=== PATIENT | male | born 1990 | race Asian ===

== ENCOUNTER 2018-06-07 05:30 | Inpatient (IN) | payer OTHER, MEDICAID, SELFPAY ==
[2018-06-07] VITALS (16 sets, daily range): BP systolic 97–141; BP diastolic 54–90; PULSE 98–120; RESP 16–20; TEMP 36.1–37.3; O2SAT 94–99; BMI 29.1
--- NOTE | 2018-06-07 06:11 | DI.CT.S_ITS ---
PROCEDURE: CT ABDOMEN PELVIS W CON INDICATIONS: large indurated area of left buttock and inside of rectum TECHNIQUE: After the administration of intravenous contrast, 5 mm thick sections acquired from the diaphragm to the symphysis. 5 mm coronal and sagittal reformats were acquired. For radiation dose reduction, the following was used: automated exposure control, adjustment of mA and/or kV according to patient size. COMPARISON: None. FINDINGS: Image quality: Excellent. ABDOMEN: Lung bases: Lung bases are clear. Heart size is normal. Solid organs: There is diffuse hepatic fatty infiltration. Liver is normal in size and enhancement. Gallbladder is normal. Biliary system is non dilated. Pancreas enhances normally. Spleen is normal in size and enhancement. No adrenal nodules. Kidneys demonstrate normal size and enhancement, without hydronephrosis. Peritoneum and bowel: Bowel loops demonstrate normal wall thickness and caliber. The appendix is normal. No free fluid or air. Nodes and vessels: No retroperitoneal or mesenteric adenopathy by size criteria. Aorta and inferior vena cava are normal in size. Miscellaneous: No ventral hernias. PELVIS: Genitourinary: Bladder wall thickness is normal. Miscellaneous: There is fat stranding in the medial aspect of the left thigh and perineum. A complex, multilocular cystic mass is present in the perianal area measuring 6.2 cm AP x 5.4 cm transverse x 5.3 cephalocaudal, compatible with an abscess. No inguinal adenopathy. There is a small fat-containing left inguinal hernia. Bones: No suspicious bony lesions. No vertebral body compression fractures. IMPRESSION: 1. A complex, multilocular cystic mass is present in the perianal area, suspicious for perianal abscess. A neoplastic process is felt less likely. There is soft tissue stranding in the left medial thigh area and perineum, consistent with cellulitis. 2. Hepatic steatosis. Dictated by: Shayy Purcell M.D. on 06/07/2018 at 8:05 Transcribed by: VALORIE on 06/07/2018 at 8:10 Approved by: Shayy Purcell M.D. on 06/07/2018 at 9:52
--- NOTE | 2018-06-07 06:14 | ED.SKABFB ---
HPI - Skin/Abscess/Foreign Bdy <Charmaine Kelley DO - Last Filed: 06/09/18 09:22> General Chief complaint: Skin/Abscess/Foreign Body Stated complaint: wants boil in anus area checked Time Seen by Provider: 06/07/18 06:01 Source: patient Mode of arrival: ambulatory Limitations: no limitations History of Present Illness HPI narrative: This is a 28-year-old male who comes in with complaint of pain and fullness of the buttock and rectal area for the last 5 days. Patient was seen at a walk-in clinic 2 days ago and was told to watch it. He states he has had similar symptoms once before with Area was much smaller and resolved on its own. He states that the area is tender Um but he can't find an exact point tenderness. He states also tender inside the rectum and around it. Patient states there has not been any drainage. He has pain with bowel movements but immediately after has some relief. He states he has also had some difficulty with urination, he states that he has to try to force urination typically when he is sitting down to have a bowel movement otherwise he can't really make himself P. He is not having any pain with urination or discharge. Patient has not had any documented fevers but has felt warm. Patient has not any chest pain or shortness of breath. No nausea, no vomiting. He did take a laxative to try to give himself diarrhea to help with bowel movements. He denies any other medical history, denies any prior surgeries. Related Data Home Medications Medication Instructions Recorded Confirmed No Known Home Medications 06/07/18 06/07/18 Allergies Allergy/AdvReac Type Severity Reaction Status Date / Time No Known Drug Allergies Allergy Verified 06/07/18 06:28 Review of Systems <Charmaine Kelley DO - Last Filed: 06/09/18 09:22> Review of Systems All systems reviewed & are unremarkable except as noted in HPI and below Constitutional Denies chills and Denies fever(s) Cardiovascular Denies chest pain and Denies dyspnea Respiratory Denies dyspnea Gastrointestinal Gastrointestinal: Reports abdominal pain (pain buttock and rectum), Denies change in bowel habits, Reports tenesmus (but relief after bowel movement), Reports constipation, Denies fecal incontinence, Denies diarrhea, Denies nausea and Denies vomiting Genitourinary Reports difficulty urinating (has to force urination but can go when has bowel movement), Denies genital pain, Denies dysuria, Denies penile discharge, Denies scrotal swelling, Denies testicular pain, Denies urinary frequency and Denies urinary incontinence Musculoskeletal Denies back pain Exam <Charmaine Kelley DO - Last Filed: 06/09/18 09:22> Narrative Exam Narrative: GENERAL: Alert and oriented x three, well nourished, well appearing male in moderate distress. HEENT: Head normocephalic, atraumatic, EOMI, pupils reactive, face symmetric, moist mucous membranes NECK: Supple, full range of motion CARDIOVASCULAR: Regular rate and rhythm without murmurs, rubs or gallops. RESPIRATORY: Breath sounds equal bilaterally, no wheezes rales or rhonchi. ABDOMEN: Soft, nontender. Normoactive bowel sounds all 4 quadrants. No guarding or rebound, rigidity, no mass, patient has fullness and induration of left buttock from 7x5cm, patient has no discernible fluctuence. Patient on digital rectal has induration at the 9 o'clock position internally, no fluctuence appreciated but patient is tender. No erthema noted. : No CVA tenderness EXTREMITIES: Normal range of motion, no clubbing or edema. Neurovascularly intact NEUROLOGICAL: Cranial nerves II through XII grossly intact. Moving all extremities SKIN: Warm, dry, no petechiae, no rashes or lesions. Initial Vital Signs Initial Vital Signs: Vital Signs Temperature 97 F L 06/07/18 05:51 Pulse Rate 120 H 06/07/18 05:51 Respiratory Rate 20 06/07/18 05:51 Blood Pressure 135/80 06/07/18 05:51 Pulse Oximetry 97 06/07/18 05:51 <Maria Luisa Duong DO - Last Filed: 06/07/18 11:45> Initial Vital Signs Initial Vital Signs: Vital Signs Temperature 97 F L 06/07/18 05:51 Pulse Rate 120 H 06/07/18 05:51 Respiratory Rate 20 06/07/18 05:51 Blood Pressure 135/80 06/07/18 05:51 Pulse Oximetry 97 06/07/18 05:51 Course <Charmaine Kelley DO - Last Filed: 06/09/18 09:22> Orders Ordered: ED Orders 06/09/18 08:25 Complete Blood Count AUTO DIFF Urgent Comprehensive Metabolic Panel Urgent Hydrocodone Bitart/Acetaminophen ([place]ore 5/325) 2 tab PO Q6HR PRN PRN Reason: Pain, Severe (7-10) Last Admin: 06/09/18 03:59 Dose: 2 tab Admin: 06/08/18 02:27 Dose: 2 tab Admin: 06/07/18 19:40 Dose: 2 tab Enoxaparin Sodium (Lovenox) 40 mg SUBCUT DAILY [facility] Last Admin: 06/09/18 09:02 Dose: 40 mg Admin: 06/08/18 09:41 Dose: 40 mg Gabapentin (Neurontin) 300 mg PO BID [facility] Last Admin: 06/09/18 09:02 Dose: 300 mg Admin: 06/08/18 21:37 Dose: 300 mg Admin: 06/08/18 09:41 Dose: 300 mg Admin: 06/07/18 20:51 Dose: 300 mg Glyburide (Diabeta) 2.5 mg PO DAILY@0800 [facility] Last Admin: 06/09/18 09:02 Dose: 2.5 mg Admin: 06/08/18 13:49 Dose: 2.5 mg Lactated Ringer's (Lactated Ringers) 1,000 mls @ 125 mls/hr IV CONT [facility] Last Admin: 06/07/18 20:53 Dose: 125 mls/hr Infusion: 06/07/18 20:53 Dose: 125 mls/hr Admin: 06/07/18 17:22 Dose: 125 mls/hr Ampicillin Sodium/Sulbactam (Sodium 3 gm/ Sodium Chloride) 100 mls @ 100 mls/hr IV Q6H [facility] Last Infusion: 06/09/18 07:38 Dose: 0 mls/hr Admin: 06/09/18 06:08 Dose: 100 mls/hr Infusion: 06/09/18 01:00 Dose: 0 mls/hr Admin: 06/08/18 23:47 Dose: 100 mls/hr Infusion: 06/08/18 19:55 Dose: 0 mls/hr Admin: 06/08/18 18:04 Dose: 100 mls/hr Insulin Aspart (Novolog Flexpen) 0 unit SUBCUT ACHS [facility]; Protocol Last Admin: 06/09/18 09:03 Dose: 2 unit Admin: 06/08/18 21:35 Dose: Not Given Admin: 06/08/18 16:51 Dose: 2 unit Admin: 06/08/18 13:53 Dose: 2 unit Ketorolac Tromethamine (Toradol) 30 mg IV Q6HR PRN PRN Reason: Pain, Moderate (4-6) Stop: 06/12/18 16:34 Last Admin: 06/09/18 09:01 Dose: 30 mg Admin: 06/08/18 18:04 Dose: 30 mg Admin: 06/08/18 09:41 Dose: 30 mg Metformin HCl (Glucophage) 500 mg PO 0800,1700 [facility] Last Admin: 06/09/18 09:02 Dose: 500 mg Admin: 06/08/18 16:53 Dose: 500 mg Admin: 06/08/18 13:49 Dose: 500 mg Naloxone HCl (Narcan) 0.2 mg IV Q2MIN PRN PRN Reason: Opiate Reversal Sodium Chloride (Normal Saline 0.9% Flush) 10 ml IV BID [facility] Last Admin: 06/09/18 09:04 Dose: 10 ml Admin: 06/08/18 21:37 Dose: 10 ml Sodium Chloride (Normal Saline 0.9% Flush) 10 ml IV PRN PRN PRN Reason: Flush Discontinued Medications Albuterol (Ventolin) 2.5 mg INH NOW PRN PRN Reason: Coughing, Wheezing, Dyspnea Bupivacaine HCl/Epinephrine Bitart (Sensorcaine 0.5% W/ Epi (Pf)) 30 ml INJ NOW ONE Stop: 06/07/18 15:42 Last Admin: 06/07/18 15:41 Dose: 10 ml Fentanyl (Sublimaze) 25 mcg IV Q5MIN PRN PRN Reason: Pain, Mild (1-3) Hydromorphone HCl (Dilaudid) 0.5 mg IV Q5MIN PRN PRN Reason: Pain, Moderate (4-6) Sodium Chloride (Normal Saline 0.9%) 500 mls @ 1,000 mls/hr IV BOLUS ONE Stop: 06/07/18 06:40 Last Admin: 06/07/18 08:19 Dose: Not Given Ceftriaxone Sodium/Dextrose (Rocephin) 1 gm in 50 mls @ 100 mls/hr IV NOW ONE Stop: 06/07/18 06:57 Last Infusion: 06/07/18 07:22 Dose: 0 mls/hr Admin: 06/07/18 06:34 Dose: 100 mls/hr Metronidazole (Flagyl) 500 mg in 100 mls @ 100 mls/hr IV NOW ONE Stop: 06/07/18 07:27 Last Infusion: 06/07/18 09:47 Dose: 0 mls/hr Admin: 06/07/18 07:28 Dose: 100 mls/hr Sodium Chloride (Normal Saline 0.9%) 1,000 mls @ 1,000 mls/hr IV BOLUS ONE Stop: 06/07/18 07:33 Last Infusion: 06/07/18 09:50 Dose: 0 mls/hr Admin: 06/07/18 06:36 Dose: 1,000 mls/hr Lactated Ringer's (Lactated Ringers) 1,000 mls @ 150 mls/hr IV CONT [facility] Last Admin: 06/07/18 11:52 Dose: 150 mls/hr Lactated Ringer's (Lactated Ringers) 1,000 mls @ 42 mls/hr IV CONT [facility] Last Admin: 06/07/18 14:43 Dose: 42 mls/hr Influenza Virus Vaccine (Flu Vaccine) 0.5 ml IM .ONCE ONE Stop: 06/07/18 11:31 Last Admin: 06/07/18 11:53 Dose: 0.5 ml Insulin Aspart (Novolog) 1 unit SUBCUT [facility]; Protocol Last Admin: 06/08/18 14:26 Dose: Ketorolac Tromethamine (Toradol) 30 mg IV NOW ONE Stop: 06/07/18 06:31 Last Admin: 06/07/18 06:37 Dose: 30 mg Meperidine HCl (Demerol) 25 mg IV Q5MIN PRN PRN Reason: Pain or shivering Metoclopramide HCl (Reglan) 10 mg IV NOW PRN PRN Reason: Nausea And Vomiting Ondansetron HCl (Zofran) 4 mg IV NOW PRN PRN Reason: Nausea And Vomiting Oxycodone/Acetaminophen (Percocet 5/325) 1 tab PO Q30MIN PRN PRN Reason: Mild or moderate pain Vital Signs - 8 hr 06/09/18 02:06 06/09/18 06:21 06/09/18 07:20 Temperature 98.0 F 97.9 F 97.7 F Pulse Rate 73 84 81 Respiratory Rate 16 16 20 Blood Pressure 105/66 112/73 121/82 Pulse Oximetry 95 97 99 <Maria Luisa Duong, DO - Last Filed: 06/07/18 11:45> Orders Ordered: ED Orders 06/09/18 08:25 Complete Blood Count AUTO DIFF Urgent Comprehensive Metabolic Panel Urgent Hydrocodone Bitart/Acetaminophen ([place]ore 5/325) 2 tab PO Q6HR PRN PRN Reason: Pain, Severe (7-10) Last Admin: 06/09/18 03:59 Dose: 2 tab Admin: 06/08/18 02:27 Dose: 2 tab Admin: 06/07/18 19:40 Dose: 2 tab Enoxaparin Sodium (Lovenox) 40 mg SUBCUT DAILY [facility] Last Admin: 06/09/18 09:02 Dose: 40 mg Admin: 06/08/18 09:41 Dose: 40 mg Gabapentin (Neurontin) 300 mg PO BID [facility] Last Admin: 06/09/18 09:02 Dose: 300 mg Admin: 06/08/18 21:37 Dose: 300 mg Admin: 06/08/18 09:41 Dose: 300 mg Admin: 06/07/18 20:51 Dose: 300 mg Glyburide (Diabeta) 2.5 mg PO DAILY@0800 [facility] Last Admin: 06/09/18 09:02 Dose: 2.5 mg Admin: 06/08/18 13:49 Dose: 2.5 mg Lactated Ringer's (Lactated Ringers) 1,000 mls @ 125 mls/hr IV CONT [facility] Last Admin: 06/07/18 20:53 Dose: 125 mls/hr Infusion: 06/07/18 20:53 Dose: 125 mls/hr Admin: 06/07/18 17:22 Dose: 125 mls/hr Ampicillin Sodium/Sulbactam (Sodium 3 gm/ Sodium Chloride) 100 mls @ 100 mls/hr IV Q6H [facility] Last Infusion: 06/09/18 07:38 Dose: 0 mls/hr Admin: 06/09/18 06:08 Dose: 100 mls/hr Infusion: 06/09/18 01:00 Dose: 0 mls/hr Admin: 06/08/18 23:47 Dose: 100 mls/hr Infusion: 06/08/18 19:55 Dose: 0 mls/hr Admin: 06/08/18 18:04 Dose: 100 mls/hr Insulin Aspart (Novolog Flexpen) 0 unit SUBCUT [facility]; Protocol Last Admin: 06/09/18 09:03 Dose: 2 unit Admin: 06/08/18 21:35 Dose: Not Given Admin: 06/08/18 16:51 Dose: 2 unit Admin: 06/08/18 13:53 Dose: 2 unit Ketorolac Tromethamine (Toradol) 30 mg IV Q6HR PRN PRN Reason: Pain, Moderate (4-6) Stop: 06/12/18 16:34 Last Admin: 06/09/18 09:01 Dose: 30 mg Admin: 06/08/18 18:04 Dose: 30 mg Admin: 06/08/18 09:41 Dose: 30 mg Metformin HCl (Glucophage) 500 mg PO 0800,1700 [facility] Last Admin: 06/09/18 09:02 Dose: 500 mg Admin: 06/08/18 16:53 Dose: 500 mg Admin: 06/08/18 13:49 Dose: 500 mg Naloxone HCl (Narcan) 0.2 mg IV Q2MIN PRN PRN Reason: Opiate Reversal Sodium Chloride (Normal Saline 0.9% Flush) 10 ml IV BID [facility] Last Admin: 06/09/18 09:04 Dose: 10 ml Admin: 06/08/18 21:37 Dose: 10 ml Sodium Chloride (Normal Saline 0.9% Flush) 10 ml IV PRN PRN PRN Reason: Flush Discontinued Medications Albuterol (Ventolin) 2.5 mg INH NOW PRN PRN Reason: Coughing, Wheezing, Dyspnea Bupivacaine HCl/Epinephrine Bitart (Sensorcaine 0.5% W/ Epi (Pf)) 30 ml INJ NOW ONE Stop: 06/07/18 15:42 Last Admin: 06/07/18 15:41 Dose: 10 ml Fentanyl (Sublimaze) 25 mcg IV Q5MIN PRN PRN Reason: Pain, Mild (1-3) Hydromorphone HCl (Dilaudid) 0.5 mg IV Q5MIN PRN PRN Reason: Pain, Moderate (4-6) Sodium Chloride (Normal Saline 0.9%) 500 mls @ 1,000 mls/hr IV BOLUS ONE Stop: 06/07/18 06:40 Last Admin: 06/07/18 08:19 Dose: Not Given Ceftriaxone Sodium/Dextrose (Rocephin) 1 gm in 50 mls @ 100 mls/hr IV NOW ONE Stop: 06/07/18 06:57 Last Infusion: 06/07/18 07:22 Dose: 0 mls/hr Admin: 06/07/18 06:34 Dose: 100 mls/hr Metronidazole (Flagyl) 500 mg in 100 mls @ 100 mls/hr IV NOW ONE Stop: 06/07/18 07:27 Last Infusion: 06/07/18 09:47 Dose: 0 mls/hr Admin: 06/07/18 07:28 Dose: 100 mls/hr Sodium Chloride (Normal Saline 0.9%) 1,000 mls @ 1,000 mls/hr IV BOLUS ONE Stop: 06/07/18 07:33 Last Infusion: 06/07/18 09:50 Dose: 0 mls/hr Admin: 06/07/18 06:36 Dose: 1,000 mls/hr Lactated Ringer's (Lactated Ringers) 1,000 mls @ 150 mls/hr IV CONT [facility] Last Admin: 06/07/18 11:52 Dose: 150 mls/hr Lactated Ringer's (Lactated Ringers) 1,000 mls @ 42 mls/hr IV CONT [facility] Last Admin: 06/07/18 14:43 Dose: 42 mls/hr Influenza Virus Vaccine (Flu Vaccine) 0.5 ml IM .ONCE ONE Stop: 06/07/18 11:31 Last Admin: 06/07/18 11:53 Dose: 0.5 ml Insulin Aspart (Novolog) 1 unit SUBCUT [facility]; Protocol Last Admin: 06/08/18 14:26 Dose: Ketorolac Tromethamine (Toradol) 30 mg IV NOW ONE Stop: 06/07/18 06:31 Last Admin: 06/07/18 06:37 Dose: 30 mg Meperidine HCl (Demerol) 25 mg IV Q5MIN PRN PRN Reason: Pain or shivering Metoclopramide HCl (Reglan) 10 mg IV NOW PRN PRN Reason: Nausea And Vomiting Ondansetron HCl (Zofran) 4 mg IV NOW PRN PRN Reason: Nausea And Vomiting Oxycodone/Acetaminophen (Percocet 5/325) 1 tab PO Q30MIN PRN PRN Reason: Mild or moderate pain Vital Signs - 8 hr 06/09/18 02:06 06/09/18 06:21 06/09/18 07:20 Temperature 98.0 F 97.9 F 97.7 F Pulse Rate 73 84 81 Respiratory Rate 16 16 20 Blood Pressure 105/66 112/73 121/82 Pulse Oximetry 95 97 99 MDM - Skin/Abscess/Foreign Bdy <Charmaine Kelley, - Last Filed: 06/09/18 09:22> Lab Data Result diagrams: 06/09/18 08:25 06/09/18 08:25 Lab Results 06/07/18 06/07/18 06/07/18 Range/Units 06:25 06:25 07:07 WBC 17.3 H (4.5-11.0) X10^3/uL RBC 5.29 (4.5-5.9) X10^6/uL Hgb 16.6 (13.5-17.5) g/dL Hct 46.7 (41-53) % MCV 88.2 (80-100) fL MCH 31.3 (26-34) PG MCHC 35.6 (30-36) % RDW 12.7 (11.6-14.8) % Plt Count 208 (150-400) X10^3/uL Neut % (Auto) 80.0 H (50-75) % Lymph % (Auto) 9.5 L (25-40) % [place] % (Auto) 9.5 (3-14) % Eos % (Auto) 0.3 L (2-4) % Baso % (Auto) 0.7 (0-2) % Neut # (Auto) 00363 H (4528-9224) /uL Sodium 137 (137-145) mmol/L Potassium 4.0 (3.4-5.1) mmol/L Chloride 98 (98-107) mmol/L Carbon Dioxide 23 (22-32) mmol/L BUN 9 (9-20) mg/dL Creatinine 0.50 L (0.66-1.25) mg/dL Estimated GFR > 60.0 (>60) mL/min BUN/Creatinine Ratio 18.0 (6-22) Glucose 236 H (70-100) mg/dL Hemoglobin A1c (4.0-6.0) % Lactate 1.7 (0.7-2.1) mmol/L Calcium 9.1 (8.4-10.2) mg/dL Total Bilirubin (0.2-1.3) mg/dL AST (17-59) IU/L ALT (21-72) IU/L Alkaline Phosphatase (38-126) U/L Total Protein (6.3-8.2) g/dL Albumin (3.5-5.0) g/dL Globulin (1.7-4.1) g/dL Albumin/Globulin Ratio (1.0-2.8) 06/08/18 06/08/18 06/08/18 Range/Units 08:40 08:40 08:40 WBC 19.2 H (4.5-11.0) X10^3/uL RBC 5.08 (4.5-5.9) X10^6/uL Hgb 16.0 (13.5-17.5) g/dL Hct 45.1 (41-53) % MCV 88.7 (80-100) fL MCH 31.5 (26-34) PG MCHC 35.4 (30-36) % RDW 12.9 (11.6-14.8) % Plt Count 253 (150-400) X10^3/uL Neut % (Auto) 77.7 H (50-75) % Lymph % (Auto) 13.6 L (25-40) % [place] % (Auto) 8.1 (3-14) % Eos % (Auto) 0.3 L (2-4) % Baso % (Auto) 0.3 (0-2) % Neut # (Auto) 90175 H (6203-3626) /uL Sodium 139 (137-145) mmol/L Potassium 4.0 (3.4-5.1) mmol/L Chloride 100 (98-107) mmol/L Carbon Dioxide 22 (22-32) mmol/L BUN 14 (9-20) mg/dL Creatinine 0.60 L (0.66-1.25) mg/dL Estimated GFR > 60.0 (>60) mL/min BUN/Creatinine Ratio 23.3 H (6-22) Glucose 290 H (70-100) mg/dL Hemoglobin A1c 11.0 H (4.0-6.0) % Lactate (0.7-2.1) mmol/L Calcium 9.6 (8.4-10.2) mg/dL Total Bilirubin (0.2-1.3) mg/dL AST (17-59) IU/L ALT (21-72) IU/L Alkaline Phosphatase (38-126) U/L Total Protein (6.3-8.2) g/dL Albumin (3.5-5.0) g/dL Globulin (1.7-4.1) g/dL Albumin/Globulin Ratio (1.0-2.8) 06/09/18 06/09/18 Range/Units 08:25 08:25 WBC 10.9 (4.5-11.0) X10^3/uL RBC 4.84 (4.5-5.9) X10^6/uL Hgb 15.1 (13.5-17.5) g/dL Hct 42.7 (41-53) % MCV 88.1 (80-100) fL MCH 31.3 (26-34) PG MCHC 35.5 (30-36) % RDW 12.6 (11.6-14.8) % Plt Count 224 (150-400) X10^3/uL Neut % (Auto) 65.3 (50-75) % Lymph % (Auto) 22.0 L (25-40) % [place] % (Auto) 10.7 (3-14) % Eos % (Auto) 1.5 L (2-4) % Baso % (Auto) 0.5 (0-2) % Neut # (Auto) 7100 H (5773-3227) /uL Sodium 138 (137-145) mmol/L Potassium 3.6 (3.4-5.1) mmol/L Chloride 100 (98-107) mmol/L Carbon Dioxide 26 (22-32) mmol/L BUN 11 (9-20) mg/dL Creatinine 0.60 L (0.66-1.25) mg/dL Estimated GFR > 60.0 (>60) mL/min BUN/Creatinine Ratio 18.3 (6-22) Glucose 205 H (70-100) mg/dL Hemoglobin A1c (4.0-6.0) % Lactate (0.7-2.1) mmol/L Calcium 8.9 (8.4-10.2) mg/dL Total Bilirubin 0.5 (0.2-1.3) mg/dL AST 27 (17-59) IU/L ALT 33 (21-72) IU/L Alkaline Phosphatase 77 (38-126) U/L Total Protein 6.7 (6.3-8.2) g/dL Albumin 3.5 (3.5-5.0) g/dL Globulin 3.2 (1.7-4.1) g/dL Albumin/Globulin Ratio 1.1 (1.0-2.8) Point of Care Testing Glucose POC 192 Urine Dip Bedside Urine Glucose 1000 mg/dl Bedside Urine Bilirubin - Negative Bedside Urine Ketone +++ 80 Urine Specific [place] 1.015 Bedside Urine Occult Blood - Negative Bedside Urine pH 6.0 Bedside Urine Protein +/- 15 Bedside Urine Urobilinogen - Negative Bedside Urine Nitrite - Negative Bedside Urine Leukocytes - Negative Esterase MDM Narrative Medical decision making narrative: Unable to palpate a clear fluctuant mass or area of abscess although patient has a large area of induration internally on rectal exam as well as over the left buttock. Concern for a large abscess or a deep perirectal or ischial rectal abscess particularly with his difficulty with urination. Patient's heart rate also quite elevated so ordered lab work for evaluation sepsis, IV fluids and is CT of the abdomen and pelvis. Patient had antibiotics ordered as well. Patient is signed out to Dr. Duong the oncoming physician for final disposition. Lab work and CT are still pending at sign-out. <Maria Luisa Duong, DO - Last Filed: 06/07/18 11:45> Lab Data Lab Results 06/07/18 06/07/18 06/07/18 Range/Units 06:25 06:25 07:07 WBC 17.3 H (4.5-11.0) X10^3/uL RBC 5.29 (4.5-5.9) X10^6/uL Hgb 16.6 (13.5-17.5) g/dL Hct 46.7 (41-53) % MCV 88.2 (80-100) fL MCH 31.3 (26-34) PG MCHC 35.6 (30-36) % RDW 12.7 (11.6-14.8) % Plt Count 208 (150-400) X10^3/uL Neut % (Auto) 80.0 H (50-75) % Lymph % (Auto) 9.5 L (25-40) % [place] % (Auto) 9.5 (3-14) % Eos % (Auto) 0.3 L (2-4) % Baso % (Auto) 0.7 (0-2) % Neut # (Auto) 47387 H (6913-9540) /uL Sodium 137 (137-145) mmol/L Potassium 4.0 (3.4-5.1) mmol/L Chloride 98 (98-107) mmol/L Carbon Dioxide 23 (22-32) mmol/L BUN 9 (9-20) mg/dL Creatinine 0.50 L (0.66-1.25) mg/dL Estimated GFR > 60.0 (>60) mL/min BUN/Creatinine Ratio 18.0 (6-22) Glucose 236 H (70-100) mg/dL Hemoglobin A1c (4.0-6.0) % Lactate 1.7 (0.7-2.1) mmol/L Calcium 9.1 (8.4-10.2) mg/dL Total Bilirubin (0.2-1.3) mg/dL AST (17-59) IU/L ALT (21-72) IU/L Alkaline Phosphatase (38-126) U/L Total Protein (6.3-8.2) g/dL Albumin (3.5-5.0) g/dL Globulin (1.7-4.1) g/dL Albumin/Globulin Ratio (1.0-2.8) 06/08/18 06/08/18 06/08/18 Range/Units 08:40 08:40 08:40 WBC 19.2 H (4.5-11.0) X10^3/uL RBC 5.08 (4.5-5.9) X10^6/uL Hgb 16.0 (13.5-17.5) g/dL Hct 45.1 (41-53) % MCV 88.7 (80-100) fL MCH 31.5 (26-34) PG MCHC 35.4 (30-36) % RDW 12.9 (11.6-14.8) % Plt Count 253 (150-400) X10^3/uL Neut % (Auto) 77.7 H (50-75) % Lymph % (Auto) 13.6 L (25-40) % [place] % (Auto) 8.1 (3-14) % Eos % (Auto) 0.3 L (2-4) % Baso % (Auto) 0.3 (0-2) % Neut # (Auto) 26023 H (4832-0336) /uL Sodium 139 (137-145) mmol/L Potassium 4.0 (3.4-5.1) mmol/L Chloride 100 (98-107) mmol/L Carbon Dioxide 22 (22-32) mmol/L BUN 14 (9-20) mg/dL Creatinine 0.60 L (0.66-1.25) mg/dL Estimated GFR > 60.0 (>60) mL/min BUN/Creatinine Ratio 23.3 H (6-22) Glucose 290 H (70-100) mg/dL Hemoglobin A1c 11.0 H (4.0-6.0) % Lactate (0.7-2.1) mmol/L Calcium 9.6 (8.4-10.2) mg/dL Total Bilirubin (0.2-1.3) mg/dL AST (17-59) IU/L ALT (21-72) IU/L Alkaline Phosphatase (38-126) U/L Total Protein (6.3-8.2) g/dL Albumin (3.5-5.0) g/dL Globulin (1.7-4.1) g/dL Albumin/Globulin Ratio (1.0-2.8) 06/09/18 06/09/18 Range/Units 08:25 08:25 WBC 10.9 (4.5-11.0) X10^3/uL RBC 4.84 (4.5-5.9) X10^6/uL Hgb 15.1 (13.5-17.5) g/dL Hct 42.7 (41-53) % MCV 88.1 (80-100) fL MCH 31.3 (26-34) PG MCHC 35.5 (30-36) % RDW 12.6 (11.6-14.8) % Plt Count 224 (150-400) X10^3/uL Neut % (Auto) 65.3 (50-75) % Lymph % (Auto) 22.0 L (25-40) % [place] % (Auto) 10.7 (3-14) % Eos % (Auto) 1.5 L (2-4) % Baso % (Auto) 0.5 (0-2) % Neut # (Auto) 7100 H (2867-7092) /uL Sodium 138 (137-145) mmol/L Potassium 3.6 (3.4-5.1) mmol/L Chloride 100 (98-107) mmol/L Carbon Dioxide 26 (22-32) mmol/L BUN 11 (9-20) mg/dL Creatinine 0.60 L (0.66-1.25) mg/dL Estimated GFR > 60.0 (>60) mL/min BUN/Creatinine Ratio 18.3 (6-22) Glucose 205 H (70-100) mg/dL Hemoglobin A1c (4.0-6.0) % Lactate (0.7-2.1) mmol/L Calcium 8.9 (8.4-10.2) mg/dL Total Bilirubin 0.5 (0.2-1.3) mg/dL AST 27 (17-59) IU/L ALT 33 (21-72) IU/L Alkaline Phosphatase 77 (38-126) U/L Total Protein 6.7 (6.3-8.2) g/dL Albumin 3.5 (3.5-5.0) g/dL Globulin 3.2 (1.7-4.1) g/dL Albumin/Globulin Ratio 1.1 (1.0-2.8) Point of Care Testing Glucose POC 192 Urine Dip Bedside Urine Glucose 1000 mg/dl Bedside Urine Bilirubin - Negative Bedside Urine Ketone +++ 80 Urine Specific [place] 1.015 Bedside Urine Occult Blood - Negative Bedside Urine pH 6.0 Bedside Urine Protein +/- 15 Bedside Urine Urobilinogen - Negative Bedside Urine Nitrite - Negative Bedside Urine Leukocytes - Negative Esterase MDM Narrative Medical decision making narrative: Sign out from slot shift manager provider. I have seen evaluated patient. He does have fluctuation in his right buttock area, pain is currently controlled. 8:[address] Montemayor aware of patient will be in to see him shortly. Patient going upstairs and then to OR Discharge Plan Departure Patient Disposition: Admitted As Inpatient Clinical Impression: Abscess, perianal Discharge Date/Time: 06/07/18 10:53 Interventions: ED Discharge Assessment Last Done: 06/07/18 10:54 Admit Date/Time: 06/07/18 10:20 Admit Provider: Chuck Montemayor
--- NOTE | 2018-06-07 06:19 | ED_ITS ---
HPI - Skin/Abscess/Foreign Bdy <Charmaine Kelley DO - Last Filed: 06/09/18 09:22> General Chief complaint: Skin/Abscess/Foreign Body Stated complaint: wants boil in anus area checked Time Seen by Provider: 06/07/18 06:01 Source: patient Mode of arrival: ambulatory Limitations: no limitations History of Present Illness HPI narrative: This is a 28-year-old male who comes in with complaint of pain and fullness of the buttock and rectal area for the last 5 days. Patient was seen at a walk-in clinic 2 days ago and was told to watch it. He states he has had similar symptoms once before with Area was much smaller and resolved on its own. He states that the area is tender Um but he can't find an exact point tenderness. He states also tender inside the rectum and around it. Patient states there has not been any drainage. He has pain with bowel movements but immediately after has some relief. He states he has also had some difficulty with urination, he states that he has to try to force urination typically when he is sitting down to have a bowel movement otherwise he can't really make himself P. He is not having any pain with urination or discharge. Patient has not had any documented fevers but has felt warm. Patient has not any chest pain or shortness of breath. No nausea, no vomiting. He did take a laxative to try to give himself diarrhea to help with bowel movements. He denies any other medical history, denies any prior surgeries. Related Data Home Medications Medication Instructions Recorded Confirmed No Known Home Medications 06/07/18 06/07/18 Allergies Allergy/AdvReac Type Severity Reaction Status Date / Time No Known Drug Allergies Allergy Verified 06/07/18 06:28 Review of Systems <Charmaine Kelley DO - Last Filed: 06/09/18 09:22> Review of Systems All systems reviewed & are unremarkable except as noted in HPI and below Constitutional Denies chills and Denies fever(s) Cardiovascular Denies chest pain and Denies dyspnea Respiratory Denies dyspnea Gastrointestinal Gastrointestinal: Reports abdominal pain (pain buttock and rectum), Denies change in bowel habits, Reports tenesmus (but relief after bowel movement), Reports constipation, Denies fecal incontinence, Denies diarrhea, Denies nausea and Denies vomiting Genitourinary Reports difficulty urinating (has to force urination but can go when has bowel movement), Denies genital pain, Denies dysuria, Denies penile discharge, Denies scrotal swelling, Denies testicular pain, Denies urinary frequency and Denies urinary incontinence Musculoskeletal Denies back pain Exam <Charmaine Kelley DO - Last Filed: 06/09/18 09:22> Narrative Exam Narrative: GENERAL: Alert and oriented x three, well nourished, well appearing male in moderate distress. HEENT: Head normocephalic, atraumatic, EOMI, pupils reactive, face symmetric, moist mucous membranes NECK: Supple, full range of motion CARDIOVASCULAR: Regular rate and rhythm without murmurs, rubs or gallops. RESPIRATORY: Breath sounds equal bilaterally, no wheezes rales or rhonchi. ABDOMEN: Soft, nontender. Normoactive bowel sounds all 4 quadrants. No guarding or rebound, rigidity, no mass, patient has fullness and induration of left buttock from 7x5cm, patient has no discernible fluctuence. Patient on digital rectal has induration at the 9 o'clock position internally, no fluctuence appreciated but patient is tender. No erthema noted. : No CVA tenderness EXTREMITIES: Normal range of motion, no clubbing or edema. Neurovascularly intact NEUROLOGICAL: Cranial nerves II through XII grossly intact. Moving all extremities SKIN: Warm, dry, no petechiae, no rashes or lesions. Initial Vital Signs Initial Vital Signs: Vital Signs Temperature 97 F L 06/07/18 05:51 Pulse Rate 120 H 06/07/18 05:51 Respiratory Rate 20 06/07/18 05:51 Blood Pressure 135/80 06/07/18 05:51 Pulse Oximetry 97 06/07/18 05:51 <Maria Luisa Duong DO - Last Filed: 06/07/18 11:45> Initial Vital Signs Initial Vital Signs: Vital Signs Temperature 97 F L 06/07/18 05:51 Pulse Rate 120 H 06/07/18 05:51 Respiratory Rate 20 06/07/18 05:51 Blood Pressure 135/80 06/07/18 05:51 Pulse Oximetry 97 06/07/18 05:51 Course <Charmaine Kelley DO - Last Filed: 06/09/18 09:22> Orders Ordered: ED Orders 06/09/18 08:25 Complete Blood Count AUTO DIFF Urgent Comprehensive Metabolic Panel Urgent Hydrocodone Bitart/Acetaminophen ([place] 5/325) 2 tab PO Q6HR PRN PRN Reason: Pain, Severe (7-10) Last Admin: 06/09/18 03:59 Dose: 2 tab Admin: 06/08/18 02:27 Dose: 2 tab Admin: 06/07/18 19:40 Dose: 2 tab Enoxaparin Sodium (Lovenox) 40 mg SUBCUT DAILY [facility] Last Admin: 06/09/18 09:02 Dose: 40 mg Admin: 06/08/18 09:41 Dose: 40 mg Gabapentin (Neurontin) 300 mg PO BID [facility] Last Admin: 06/09/18 09:02 Dose: 300 mg Admin: 06/08/18 21:37 Dose: 300 mg Admin: 06/08/18 09:41 Dose: 300 mg Admin: 06/07/18 20:51 Dose: 300 mg Glyburide (Diabeta) 2.5 mg PO DAILY@0800 [facility] Last Admin: 06/09/18 09:02 Dose: 2.5 mg Admin: 06/08/18 13:49 Dose: 2.5 mg Lactated Ringer's (Lactated Ringers) 1,000 mls @ 125 mls/hr IV CONT [facility] Last Admin: 06/07/18 20:53 Dose: 125 mls/hr Infusion: 06/07/18 20:53 Dose: 125 mls/hr Admin: 06/07/18 17:22 Dose: 125 mls/hr Ampicillin Sodium/Sulbactam (Sodium 3 gm/ Sodium Chloride) 100 mls @ 100 mls/ hr IV Q6H [facility] Last Infusion: 06/09/18 07:38 Dose: 0 mls/hr Admin: 06/09/18 06:08 Dose: 100 mls/hr Infusion: 06/09/18 01:00 Dose: 0 mls/hr Admin: 06/08/18 23:47 Dose: 100 mls/hr Infusion: 06/08/18 19:55 Dose: 0 mls/hr Admin: 06/08/18 18:04 Dose: 100 mls/hr Insulin Aspart (Novolog Flexpen) 0 unit SUBCUT ACHS [facility]; Protocol Last Admin: 06/09/18 09:03 Dose: 2 unit Admin: 06/08/18 21:35 Dose: Not Given Admin: 06/08/18 16:51 Dose: 2 unit Admin: 06/08/18 13:53 Dose: 2 unit Ketorolac Tromethamine (Toradol) 30 mg IV Q6HR PRN PRN Reason: Pain, Moderate (4-6) Stop: 06/12/18 16:34 Last Admin: 06/09/18 09:01 Dose: 30 mg Admin: 06/08/18 18:04 Dose: 30 mg Admin: 06/08/18 09:41 Dose: 30 mg Metformin HCl (Glucophage) 500 mg PO 0800,1700 [facility] Last Admin: 06/09/18 09:02 Dose: 500 mg Admin: 06/08/18 16:53 Dose: 500 mg Admin: 06/08/18 13:49 Dose: 500 mg Naloxone HCl (Narcan) 0.2 mg IV Q2MIN PRN PRN Reason: Opiate Reversal Sodium Chloride (Normal Saline 0.9% Flush) 10 ml IV BID [facility] Last Admin: 06/09/18 09:04 Dose: 10 ml Admin: 06/08/18 21:37 Dose: 10 ml Sodium Chloride (Normal Saline 0.9% Flush) 10 ml IV PRN PRN PRN Reason: Flush Discontinued Medications Albuterol (Ventolin) 2.5 mg INH NOW PRN PRN Reason: Coughing, Wheezing, Dyspnea Bupivacaine HCl/Epinephrine Bitart (Sensorcaine 0.5% W/ Epi (Pf)) 30 ml INJ NOW ONE Stop: 06/07/18 15:42 Last Admin: 06/07/18 15:41 Dose: 10 ml Fentanyl (Sublimaze) 25 mcg IV Q5MIN PRN PRN Reason: Pain, Mild (1-3) Hydromorphone HCl (Dilaudid) 0.5 mg IV Q5MIN PRN PRN Reason: Pain, Moderate (4-6) Sodium Chloride (Normal Saline 0.9%) 500 mls @ 1,000 mls/hr IV BOLUS ONE Stop: 06/07/18 06:40 Last Admin: 06/07/18 08:19 Dose: Not Given Ceftriaxone Sodium/Dextrose (Rocephin) 1 gm in 50 mls @ 100 mls/hr IV NOW ONE Stop: 06/07/18 06:57 Last Infusion: 06/07/18 07:22 Dose: 0 mls/hr Admin: 06/07/18 06:34 Dose: 100 mls/hr Metronidazole (Flagyl) 500 mg in 100 mls @ 100 mls/hr IV NOW ONE Stop: 06/07/18 07:27 Last Infusion: 06/07/18 09:47 Dose: 0 mls/hr Admin: 06/07/18 07:28 Dose: 100 mls/hr Sodium Chloride (Normal Saline 0.9%) 1,000 mls @ 1,000 mls/hr IV BOLUS ONE Stop: 06/07/18 07:33 Last Infusion: 06/07/18 09:50 Dose: 0 mls/hr Admin: 06/07/18 06:36 Dose: 1,000 mls/hr Lactated Ringer's (Lactated Ringers) 1,000 mls @ 150 mls/hr IV CONT [facility] Last Admin: 06/07/18 11:52 Dose: 150 mls/hr Lactated Ringer's (Lactated Ringers) 1,000 mls @ 42 mls/hr IV CONT [facility] Last Admin: 06/07/18 14:43 Dose: 42 mls/hr Influenza Virus Vaccine (Flu Vaccine) 0.5 ml IM .ONCE ONE Stop: 06/07/18 11:31 Last Admin: 06/07/18 11:53 Dose: 0.5 ml Insulin Aspart (Novolog) 1 unit SUBCUT [facility]; Protocol Last Admin: 06/08/18 14:26 Dose: Ketorolac Tromethamine (Toradol) 30 mg IV NOW ONE Stop: 06/07/18 06:31 Last Admin: 06/07/18 06:37 Dose: 30 mg Meperidine HCl (Demerol) 25 mg IV Q5MIN PRN PRN Reason: Pain or shivering Metoclopramide HCl (Reglan) 10 mg IV NOW PRN PRN Reason: Nausea And Vomiting Ondansetron HCl (Zofran) 4 mg IV NOW PRN PRN Reason: Nausea And Vomiting Oxycodone/Acetaminophen (Perc[place]et 5/325) 1 tab PO Q30MIN PRN PRN Reason: Mild or moderate pain Vital Signs - 8 hr 06/09/18 02:06 06/09/18 06:21 06/09/18 07:20 Temperature 98.0 F 97.9 F 97.7 F Pulse Rate 73 84 81 Respiratory Rate 16 16 20 Blood Pressure 105/66 112/73 121/82 Pulse Oximetry 95 97 99 <Maria Luisa Duong, DO - Last Filed: 06/07/18 11:45> Orders Ordered: ED Orders 06/09/18 08:25 Complete Blood Count AUTO DIFF Urgent Comprehensive Metabolic Panel Urgent Hydrocodone Bitart/Acetaminophen ([place] 5/325) 2 tab PO Q6HR PRN PRN Reason: Pain, Severe (7-10) Last Admin: 06/09/18 03:59 Dose: 2 tab Admin: 06/08/18 02:27 Dose: 2 tab Admin: 06/07/18 19:40 Dose: 2 tab Enoxaparin Sodium (Lovenox) 40 mg SUBCUT DAILY [facility] Last Admin: 06/09/18 09:02 Dose: 40 mg Admin: 06/08/18 09:41 Dose: 40 mg Gabapentin (Neurontin) 300 mg PO BID [facility] Last Admin: 06/09/18 09:02 Dose: 300 mg Admin: 06/08/18 21:37 Dose: 300 mg Admin: 06/08/18 09:41 Dose: 300 mg Admin: 06/07/18 20:51 Dose: 300 mg Glyburide (Diabeta) 2.5 mg PO DAILY@0800 [facility] Last Admin: 06/09/18 09:02 Dose: 2.5 mg Admin: 06/08/18 13:49 Dose: 2.5 mg Lactated Ringer's (Lactated Ringers) 1,000 mls @ 125 mls/hr IV CONT [facility] Last Admin: 06/07/18 20:53 Dose: 125 mls/hr Infusion: 06/07/18 20:53 Dose: 125 mls/hr Admin: 06/07/18 17:22 Dose: 125 mls/hr Ampicillin Sodium/Sulbactam (Sodium 3 gm/ Sodium Chloride) 100 mls @ 100 mls/ hr IV Q6H [facility] Last Infusion: 06/09/18 07:38 Dose: 0 mls/hr Admin: 06/09/18 06:08 Dose: 100 mls/hr Infusion: 06/09/18 01:00 Dose: 0 mls/hr Admin: 06/08/18 23:47 Dose: 100 mls/hr Infusion: 06/08/18 19:55 Dose: 0 mls/hr Admin: 06/08/18 18:04 Dose: 100 mls/hr Insulin Aspart (Novolog Flexpen) 0 unit SUBCUT [facility]; Protocol Last Admin: 06/09/18 09:03 Dose: 2 unit Admin: 06/08/18 21:35 Dose: Not Given Admin: 06/08/18 16:51 Dose: 2 unit Admin: 06/08/18 13:53 Dose: 2 unit Ketorolac Tromethamine (Toradol) 30 mg IV Q6HR PRN PRN Reason: Pain, Moderate (4-6) Stop: 06/12/18 16:34 Last Admin: 06/09/18 09:01 Dose: 30 mg Admin: 06/08/18 18:04 Dose: 30 mg Admin: 06/08/18 09:41 Dose: 30 mg Metformin HCl (Glucophage) 500 mg PO 0800,1700 [facility] Last Admin: 06/09/18 09:02 Dose: 500 mg Admin: 06/08/18 16:53 Dose: 500 mg Admin: 06/08/18 13:49 Dose: 500 mg Naloxone HCl (Narcan) 0.2 mg IV Q2MIN PRN PRN Reason: Opiate Reversal Sodium Chloride (Normal Saline 0.9% Flush) 10 ml IV BID [facility] Last Admin: 06/09/18 09:04 Dose: 10 ml Admin: 06/08/18 21:37 Dose: 10 ml Sodium Chloride (Normal Saline 0.9% Flush) 10 ml IV PRN PRN PRN Reason: Flush Discontinued Medications Albuterol (Ventolin) 2.5 mg INH NOW PRN PRN Reason: Coughing, Wheezing, Dyspnea Bupivacaine HCl/Epinephrine Bitart (Sensorcaine 0.5% W/ Epi (Pf)) 30 ml INJ NOW ONE Stop: 06/07/18 15:42 Last Admin: 06/07/18 15:41 Dose: 10 ml Fentanyl (Sublimaze) 25 mcg IV Q5MIN PRN PRN Reason: Pain, Mild (1-3) Hydromorphone HCl (Dilaudid) 0.5 mg IV Q5MIN PRN PRN Reason: Pain, Moderate (4-6) Sodium Chloride (Normal Saline 0.9%) 500 mls @ 1,000 mls/hr IV BOLUS ONE Stop: 06/07/18 06:40 Last Admin: 06/07/18 08:19 Dose: Not Given Ceftriaxone Sodium/Dextrose (Rocephin) 1 gm in 50 mls @ 100 mls/hr IV NOW ONE Stop: 06/07/18 06:57 Last Infusion: 06/07/18 07:22 Dose: 0 mls/hr Admin: 06/07/18 06:34 Dose: 100 mls/hr Metronidazole (Flagyl) 500 mg in 100 mls @ 100 mls/hr IV NOW ONE Stop: 06/07/18 07:27 Last Infusion: 06/07/18 09:47 Dose: 0 mls/hr Admin: 06/07/18 07:28 Dose: 100 mls/hr Sodium Chloride (Normal Saline 0.9%) 1,000 mls @ 1,000 mls/hr IV BOLUS ONE Stop: 06/07/18 07:33 Last Infusion: 06/07/18 09:50 Dose: 0 mls/hr Admin: 06/07/18 06:36 Dose: 1,000 mls/hr Lactated Ringer's (Lactated Ringers) 1,000 mls @ 150 mls/hr IV CONT [facility] Last Admin: 06/07/18 11:52 Dose: 150 mls/hr Lactated Ringer's (Lactated Ringers) 1,000 mls @ 42 mls/hr IV CONT [facility] Last Admin: 06/07/18 14:43 Dose: 42 mls/hr Influenza Virus Vaccine (Flu Vaccine) 0.5 ml IM .ONCE ONE Stop: 06/07/18 11:31 Last Admin: 06/07/18 11:53 Dose: 0.5 ml Insulin Aspart (Novolog) 1 unit SUBCUT [facility]; Protocol Last Admin: 06/08/18 14:26 Dose: Ketorolac Tromethamine (Toradol) 30 mg IV NOW ONE Stop: 06/07/18 06:31 Last Admin: 06/07/18 06:37 Dose: 30 mg Meperidine HCl (Demerol) 25 mg IV Q5MIN PRN PRN Reason: Pain or shivering Metoclopramide HCl (Reglan) 10 mg IV NOW PRN PRN Reason: Nausea And Vomiting Ondansetron HCl (Zofran) 4 mg IV NOW PRN PRN Reason: Nausea And Vomiting Oxycodone/Acetaminophen (Percoc[place] 5/325) 1 tab PO Q30MIN PRN PRN Reason: Mild or moderate pain Vital Signs - 8 hr 06/09/18 02:06 06/09/18 06:21 06/09/18 07:20 Temperature 98.0 F 97.9 F 97.7 F Pulse Rate 73 84 81 Respiratory Rate 16 16 20 Blood Pressure 105/66 112/73 121/82 Pulse Oximetry 95 97 99 MDM - Skin/Abscess/Foreign Bdy <Charmaine Kelley, - Last Filed: 06/09/18 09:22> Lab Data Result diagrams: 06/09/18 08:25 06/09/18 08:25 Lab Results 06/07/18 06/07/18 06/07/18 Range/Units 06:25 06:25 07:07 WBC 17.3 H (4.5-11.0) X10^3/uL RBC 5.29 (4.5-5.9) X10^6/uL Hgb 16.6 (13.5-17.5) g/dL Hct 46.7 (41-53) % MCV 88.2 (80-100) fL MCH 31.3 (26-34) PG MCHC 35.6 (30-36) % RDW 12.7 (11.6-14.8) % Plt Count 208 (150-400) X10^3/uL Neut % (Auto) 80.0 H (50-75) % Lymph % (Auto) 9.5 L (25-40) % [place] % (Auto) 9.5 (3-14) % Eos % (Auto) 0.3 L (2-4) % Baso % (Auto) 0.7 (0-2) % Neut # (Auto) 30682 H (3540-7686) /uL Sodium 137 (137-145) mmol/L Potassium 4.0 (3.4-5.1) mmol/L Chloride 98 (98-107) mmol/L Carbon Dioxide 23 (22-32) mmol/L BUN 9 (9-20) mg/dL Creatinine 0.50 L (0.66-1.25) mg/dL Estimated GFR > 60.0 (>60) mL/min BUN/Creatinine Ratio 18.0 (6-22) Glucose 236 H (70-100) mg/dL Hemoglobin A1c (4.0-6.0) % Lactate 1.7 (0.7-2.1) mmol/L Calcium 9.1 (8.4-10.2) mg/dL Total Bilirubin (0.2-1.3) mg/dL AST (17-59) IU/L ALT (21-72) IU/L Alkaline Phosphatase (38-126) U/L Total Protein (6.3-8.2) g/dL Albumin (3.5-5.0) g/dL Globulin (1.7-4.1) g/dL Albumin/Globulin Ratio (1.0-2.8) 06/08/18 06/08/18 06/08/18 Range/Units 08:40 08:40 08:40 WBC 19.2 H (4.5-11.0) X10^3/uL RBC 5.08 (4.5-5.9) X10^6/uL Hgb 16.0 (13.5-17.5) g/dL Hct 45.1 (41-53) % MCV 88.7 (80-100) fL MCH 31.5 (26-34) PG MCHC 35.4 (30-36) % RDW 12.9 (11.6-14.8) % Plt Count 253 (150-400) X10^3/uL Neut % (Auto) 77.7 H (50-75) % Lymph % (Auto) 13.6 L (25-40) % [place] % (Auto) 8.1 (3-14) % Eos % (Auto) 0.3 L (2-4) % Baso % (Auto) 0.3 (0-2) % Neut # (Auto) 02042 H (3309-8226) /uL Sodium 139 (137-145) mmol/L Potassium 4.0 (3.4-5.1) mmol/L Chloride 100 (98-107) mmol/L Carbon Dioxide 22 (22-32) mmol/L BUN 14 (9-20) mg/dL Creatinine 0.60 L (0.66-1.25) mg/dL Estimated GFR > 60.0 (>60) mL/min BUN/Creatinine Ratio 23.3 H (6-22) Glucose 290 H (70-100) mg/dL Hemoglobin A1c 11.0 H (4.0-6.0) % Lactate (0.7-2.1) mmol/L Calcium 9.6 (8.4-10.2) mg/dL Total Bilirubin (0.2-1.3) mg/dL AST (17-59) IU/L ALT (21-72) IU/L Alkaline Phosphatase (38-126) U/L Total Protein (6.3-8.2) g/dL Albumin (3.5-5.0) g/dL Globulin (1.7-4.1) g/dL Albumin/Globulin Ratio (1.0-2.8) 06/09/18 06/09/18 Range/Units 08:25 08:25 WBC 10.9 (4.5-11.0) X10^3/uL RBC 4.84 (4.5-5.9) X10^6/uL Hgb 15.1 (13.5-17.5) g/dL Hct 42.7 (41-53) % MCV 88.1 (80-100) fL MCH 31.3 (26-34) PG MCHC 35.5 (30-36) % RDW 12.6 (11.6-14.8) % Plt Count 224 (150-400) X10^3/uL Neut % (Auto) 65.3 (50-75) % Lymph % (Auto) 22.0 L (25-40) % [place] % (Auto) 10.7 (3-14) % Eos % (Auto) 1.5 L (2-4) % Baso % (Auto) 0.5 (0-2) % Neut # (Auto) 7100 H (8585-8309) /uL Sodium 138 (137-145) mmol/L Potassium 3.6 (3.4-5.1) mmol/L Chloride 100 (98-107) mmol/L Carbon Dioxide 26 (22-32) mmol/L BUN 11 (9-20) mg/dL Creatinine 0.60 L (0.66-1.25) mg/dL Estimated GFR > 60.0 (>60) mL/min BUN/Creatinine Ratio 18.3 (6-22) Glucose 205 H (70-100) mg/dL Hemoglobin A1c (4.0-6.0) % Lactate (0.7-2.1) mmol/L Calcium 8.9 (8.4-10.2) mg/dL Total Bilirubin 0.5 (0.2-1.3) mg/dL AST 27 (17-59) IU/L ALT 33 (21-72) IU/L Alkaline Phosphatase 77 (38-126) U/L Total Protein 6.7 (6.3-8.2) g/dL Albumin 3.5 (3.5-5.0) g/dL Globulin 3.2 (1.7-4.1) g/dL Albumin/Globulin Ratio 1.1 (1.0-2.8) Point of Care Testing Glucose POC 192 Urine Dip Bedside Urine Glucose 1000 mg/dl Bedside Urine Bilirubin - Negative Bedside Urine Ketone +++ 80 Urine Specific [place] 1.015 Bedside Urine Occult Blood - Negative Bedside Urine pH 6.0 Bedside Urine Protein +/- 15 Bedside Urine Urobilinogen - Negative Bedside Urine Nitrite - Negative Bedside Urine Leukocytes - Negative Esterase MDM Narrative Medical decision making narrative: Unable to palpate a clear fluctuant mass or area of abscess although patient has a large area of induration internally on rectal exam as well as over the left buttock. Concern for a large abscess or a deep perirectal or ischial rectal abscess particularly with his difficulty with urination. Patient's heart rate also quite elevated so ordered lab work for evaluation sepsis, IV fluids and is CT of the abdomen and pelvis. Patient had antibiotics ordered as well. Patient is signed out to Dr. Duong the oncoming physician for final disposition. Lab work and CT are still pending at sign- out. <Maria Luisa Duong, DO - Last Filed: 06/07/18 11:45> Lab Data Lab Results 06/07/18 06/07/18 06/07/18 Range/Units 06:25 06:25 07:07 WBC 17.3 H (4.5-11.0) X10^3/uL RBC 5.29 (4.5-5.9) X10^6/uL Hgb 16.6 (13.5-17.5) g/dL Hct 46.7 (41-53) % MCV 88.2 (80-100) fL MCH 31.3 (26-34) PG MCHC 35.6 (30-36) % RDW 12.7 (11.6-14.8) % Plt Count 208 (150-400) X10^3/uL Neut % (Auto) 80.0 H (50-75) % Lymph % (Auto) 9.5 L (25-40) % [place] % (Auto) 9.5 (3-14) % Eos % (Auto) 0.3 L (2-4) % Baso % (Auto) 0.7 (0-2) % Neut # (Auto) 56721 H (8638-9717) /uL Sodium 137 (137-145) mmol/L Potassium 4.0 (3.4-5.1) mmol/L Chloride 98 (98-107) mmol/L Carbon Dioxide 23 (22-32) mmol/L BUN 9 (9-20) mg/dL Creatinine 0.50 L (0.66-1.25) mg/dL Estimated GFR > 60.0 (>60) mL/min BUN/Creatinine Ratio 18.0 (6-22) Glucose 236 H (70-100) mg/dL Hemoglobin A1c (4.0-6.0) % Lactate 1.7 (0.7-2.1) mmol/L Calcium 9.1 (8.4-10.2) mg/dL Total Bilirubin (0.2-1.3) mg/dL AST (17-59) IU/L ALT (21-72) IU/L Alkaline Phosphatase (38-126) U/L Total Protein (6.3-8.2) g/dL Albumin (3.5-5.0) g/dL Globulin (1.7-4.1) g/dL Albumin/Globulin Ratio (1.0-2.8) 06/08/18 06/08/18 06/08/18 Range/Units 08:40 08:40 08:40 WBC 19.2 H (4.5-11.0) X10^3/uL RBC 5.08 (4.5-5.9) X10^6/uL Hgb 16.0 (13.5-17.5) g/dL Hct 45.1 (41-53) % MCV 88.7 (80-100) fL MCH 31.5 (26-34) PG MCHC 35.4 (30-36) % RDW 12.9 (11.6-14.8) % Plt Count 253 (150-400) X10^3/uL Neut % (Auto) 77.7 H (50-75) % Lymph % (Auto) 13.6 L (25-40) % [place] % (Auto) 8.1 (3-14) % Eos % (Auto) 0.3 L (2-4) % Baso % (Auto) 0.3 (0-2) % Neut # (Auto) 43367 H (2951-9985) /uL Sodium 139 (137-145) mmol/L Potassium 4.0 (3.4-5.1) mmol/L Chloride 100 (98-107) mmol/L Carbon Dioxide 22 (22-32) mmol/L BUN 14 (9-20) mg/dL Creatinine 0.60 L (0.66-1.25) mg/dL Estimated GFR > 60.0 (>60) mL/min BUN/Creatinine Ratio 23.3 H (6-22) Glucose 290 H (70-100) mg/dL Hemoglobin A1c 11.0 H (4.0-6.0) % Lactate (0.7-2.1) mmol/L Calcium 9.6 (8.4-10.2) mg/dL Total Bilirubin (0.2-1.3) mg/dL AST (17-59) IU/L ALT (21-72) IU/L Alkaline Phosphatase (38-126) U/L Total Protein (6.3-8.2) g/dL Albumin (3.5-5.0) g/dL Globulin (1.7-4.1) g/dL Albumin/Globulin Ratio (1.0-2.8) 06/09/18 06/09/18 Range/Units 08:25 08:25 WBC 10.9 (4.5-11.0) X10^3/uL RBC 4.84 (4.5-5.9) X10^6/uL Hgb 15.1 (13.5-17.5) g/dL Hct 42.7 (41-53) % MCV 88.1 (80-100) fL MCH 31.3 (26-34) PG MCHC 35.5 (30-36) % RDW 12.6 (11.6-14.8) % Plt Count 224 (150-400) X10^3/uL Neut % (Auto) 65.3 (50-75) % Lymph % (Auto) 22.0 L (25-40) % [place] % (Auto) 10.7 (3-14) % Eos % (Auto) 1.5 L (2-4) % Baso % (Auto) 0.5 (0-2) % Neut # (Auto) 7100 H (2160-3501) /uL Sodium 138 (137-145) mmol/L Potassium 3.6 (3.4-5.1) mmol/L Chloride 100 (98-107) mmol/L Carbon Dioxide 26 (22-32) mmol/L BUN 11 (9-20) mg/dL Creatinine 0.60 L (0.66-1.25) mg/dL Estimated GFR > 60.0 (>60) mL/min BUN/Creatinine Ratio 18.3 (6-22) Glucose 205 H (70-100) mg/dL Hemoglobin A1c (4.0-6.0) % Lactate (0.7-2.1) mmol/L Calcium 8.9 (8.4-10.2) mg/dL Total Bilirubin 0.5 (0.2-1.3) mg/dL AST 27 (17-59) IU/L ALT 33 (21-72) IU/L Alkaline Phosphatase 77 (38-126) U/L Total Protein 6.7 (6.3-8.2) g/dL Albumin 3.5 (3.5-5.0) g/dL Globulin 3.2 (1.7-4.1) g/dL Albumin/Globulin Ratio 1.1 (1.0-2.8) Point of Care Testing Glucose POC 192 Urine Dip Bedside Urine Glucose 1000 mg/dl Bedside Urine Bilirubin - Negative Bedside Urine Ketone +++ 80 Urine Specific [place] 1.015 Bedside Urine Occult Blood - Negative Bedside Urine pH 6.0 Bedside Urine Protein +/- 15 Bedside Urine Urobilinogen - Negative Bedside Urine Nitrite - Negative Bedside Urine Leukocytes - Negative Esterase MDM Narrative Medical decision making narrative: Sign out from risk control specialist provider. I have seen evaluated patient. He does have fluctuation in his right buttock area, pain is currently controlled. 8:[address] Montemayor aware of patient will be in to see him shortly. Patient going upstairs and then to OR Discharge Plan Departure Patient Disposition: Admitted As Inpatient Clinical Impression: Abscess, perianal Discharge Date/Time: 06/07/18 10:53 Interventions: ED Discharge Assessment Last Done: 06/07/18 10:54 Admit Date/Time: 06/07/18 10:20 Admit Provider: Chuck Montemayor
[2018-06-07] MEDS: CEFTRIAXONE 1 GM/50 ML FROZ.PIGGY IV (06:34)
[2018-06-07] MEDS: SODIUM CHLORIDE 0.9% 1,000 ML 1000 ML IV (06:36)
[2018-06-07] MEDS: KETOROLAC 60 MG/2 ML VIAL 30 MG IV (06:37)
[2018-06-07 06:42] LABS: Add Manual Diff / Slide Review NO; Basophils Percent Auto 0.7 % (0-2); Eosinophils Percent Auto 0.3 % (2-4); Hematocrit 46.7 % (41-53); Hemoglobin 16.6 g/dL (13.5-17.5); Lymphocytes Percent Auto 9.5 % (25-40); Mean Corpuscular HGB Conc 35.6 % (30-36); Mean Corpuscular Hemoglobin 31.3 PG (26-34); Mean Corpuscular Volume 88.2 fL (80-100); Monocytes Percent Auto 9.5 % (3-14); Neutrophils Absolute Auto 13800 /uL (3000-5900); Platelet Count 208 X10^3/uL (150-400); Red Blood Cell Count 5.29 X10^6/uL (4.5-5.9); Red Cell Distribution Width 12.7 % (11.6-14.8); White Blood Cell Count 17.3 X10^3/uL (4.5-11.0)
[2018-06-07 06:56] LABS: Lactate (Lactic Acid) 1.7 mmol/L (0.7-2.1)
[2018-06-07] MEDS: metroNIDAZOLE 500 MG/100 ML PIGGYBACK 100 MG IV (07:28)
[2018-06-07 08:00] LABS: Blood Urea Nitrogen 9 mg/dL (9-20); Calcium 9.1 mg/dL (8.4-10.2); Carbon Dioxide 23 mmol/L (22-32); Chloride 98 mmol/L (98-107); Estimated Glomerular Filt Rate > 60.0 mL/min (>60); Glucose 236 mg/dL (70-100); HEMOLYSIS < 15 (0-50); Sodium 137 mmol/L (137-145)
--- NOTE | 2018-06-07 10:32 | PM.HP.1 ---
History of Present Illness Date Patient Seen: 06/07/18 Time Patient Seen: 09:15 Chief complaint: wants boil in anus area checked Narrative: The patient is a gentleman who is healthy. He developed painful swelling next to his anus that began 4 days ago. It dips has progressed and gotten worse and he comes to the emergency room for care. He has had a similar problem though not quite as large many years ago. He thinks that this came back in the same place. He denies any fever or chills. He has been taking ibuprofen and when it wears off he says he sweats. No blood in his stool. He has a little trouble urinating he says. Patient History Medical History Healthy adult (Chronic) Family & Social History Safety & Behavioral: Feels Safe in Current Yes Environment Tobacco & Substance use: Smoking Status Current every day smoker alcohol intake frequency a few times a week Substance Use Type does not use Meds Home Medications Medication Instructions Recorded Confirmed Type No Known Home Medications 06/07/18 06/07/18 History Allergies Allergy/AdvReac Type Severity Reaction Status Date / Time No Known Drug Allergies Allergy Verified 06/07/18 06:28 Review of Systems Review of Systems Patient denies any double vision pain is eyes earaches or sore throat. No tooth aches. No trouble swallowing. No cough cold. Had asthma when he was a youngster. Has not had it since about age 3. No heart murmurs chest pain or heart disease. No black or bloody bowel movements. No dysuria or hematuria. Since this pain developed he says he does have a little bit of trouble urinating. No seizures or blackouts. No problem with his pancreas or his thyroid that he is aware of. Exam Vital Signs (past 8 hours): - 06/07/18 05:51 06/07/18 08:35 06/07/18 09:45 Temperature 97 F L Pulse Rate 120 H 106 H 106 H Respiratory Rate 20 17 Blood Pressure 135/80 Blood Pressure [Right Arm] 108/63 97/54 L Pulse Oximetry 97 97 98 Oxygen Delivery Method Room Air Narrative Exam Narrative: Vital signs noted. Cooperative in no apparent distress. Eyes are nonicteric. Pupils equal round reactive to light. No swelling of the lids. Oral mucosa is pink moist no open lesions. Teeth are intact and in good shape. Gums are healthy. No splits or swelling of the lips. No oral lesions or ulcers. There are no nodes in the neck or supraclavicular areas. Trachea is midline and mobile. Thyroid is not enlarged. Lungs are clear to auscultation. No rales or rhonchi. Equal percussion. Heart regular rate and rhythm without murmur gallop. He has liver thrill. Abdomen is scaphoid. Soft nontender without mass. Little protuberant. No ventral is appreciated. No organ enlargement. Left side is anus there is a reddened swollen area that is tender to mild palpation. No external hemorrhoids noted I did not perform a rectal exam. I will perform bloody the operating room Objective Labs Result Diagrams: 06/07/18 06:25 06/07/18 07:07 Labs: Laboratory Results - last 24 hr 06/07/18 06/07/18 06/07/18 06:25 06:25 07:07 WBC 17.3 H RBC 5.29 Hgb 16.6 Hct 46.7 MCV 88.2 MCH 31.3 MCHC 35.6 RDW 12.7 Plt Count 208 Neut % (Auto) 80.0 H Lymph % (Auto) 9.5 L [place] % (Auto) 9.5 Eos % (Auto) 0.3 L Baso % (Auto) 0.7 Neut # (Auto) 03521 H Sodium 137 Potassium 4.0 Chloride 98 Carbon Dioxide 23 BUN 9 Creatinine 0.50 L Estimated GFR > 60.0 BUN/Creatinine Ratio 18.0 Glucose 236 H Lactate 1.7 Calcium 9.1 Assessment & Plan Plan: Assessment/Plan Narrative: Perianal/perirectal abscess. Recommend incision and drainage in the operating room and treatment according to findings. If he has an internal opening and a fistulotomy either complete or partial be for performed. Use of a seton was discussed. Risks of bleeding, infection, incontinence of either stool or air were both discussed. He appears to understand and wishes to proceed. Glucose is elevated. I suspect this will be transitory once his abscess is drained. Will hydrate him with LR at this time. Recheck his sugars postop.
[2018-06-07] MEDS: LACTATED RINGERS 1,000 ML 150 ML IV (11:52)
[2018-06-07] MEDS: INFLUENZA VACCINE 0.5 ML SYRINGE IM (11:53)
--- NOTE | 2018-06-07 14:11 | PC.NURSE ---
patient left to OR at 1320
[2018-06-07] MEDS: LACTATED RINGERS 1,000 ML 42 ML IV (14:43)
--- NOTE | 2018-06-07 15:30 | SUR.OPER ---
Prone on padded OR bed, head in foam head support, gel chest rolls, gel pad under knees, pillow under lower legs, toes free of pressure, arms secured on padded arm boards at <90 degrees abduction. Safety belt at thigh.
[2018-06-07] MEDS: BUPIVACAINE 0.5% W/ EPI (PF) VIAL 30 ML INJ (15:41)
--- NOTE | 2018-06-07 16:00 | P.OP_ITS ---
Operative Date/Time/Diagnoses Date of procedure: 06/07/18 Time of procedure: 15:58 Pre-op diagnosis: Perianal abscess Post-op diagnosis: same (Perianal abscess with fistula in ANO) Procedure & Clinicians Procedure: Exam under general anesthesia, a not scope be, I and D of abscess with partial fistulotomy and placement of a seton Same procedure as scheduled: Yes Indications: Perianal abscess Surgeon: Chuck Montemayor Click Yes if Unassisted: Yes Anesthesia Type: General Operative Notes Findings: Pain oral perianal abscess with a deep submuscular fistula induration along the fistula tract by palpation. Closure Type: not applicable Specimen(s): none sent (Cultures) Implants & Drains: Prolene suture Estimated Blood Loss (mL): 20 Blood products transfused: none Procedure in detail: The patient was placed active prone on the operating room table and underwent a after undergoing general endotracheal anesthesia. He was prepped and draped in the usual fashion. Digital exam revealed induration from the perianal abscess which was located at about 7:00 a.m. location up internally. [place] examination revealed what appeared to be the internal opening. An incision was made paralleling the circular fibers of the sphincter. The abscess was drained after culturing it. A lacrimal probe was inserted and came out through the what appeared to be the fistulous opening. A short portion of the tract was opened internally. A 0 Prolene suture was placed and in the tract and tied around the sphincter. This was not a tightly tied suture. It was just to keep the tract open. The wound was irrigated. Local anesthetic was infiltrated and packing placed into the abscess cavity. Dressing was applied the patient was taken to the recovery room extubated in good condition. Complications: none Condition: stable Disposition: PACU Plan for aftercare: Work require overnight observation due to his elevated glucose and concerned that he may actually be a diabetic.
--- NOTE | 2018-06-07 17:09 | PC.NURSE ---
1645: Received patient from PACU, in stable condition, awake, alert, and pleasant. Denies nausea or pain. Family is at bedside providing supportive care.
[2018-06-07] MEDS: LACTATED RINGERS 1,000 ML 125 ML IV ×2 (17:22→20:53)
[2018-06-07] MEDS: HYDROCODONE/ACET 5/325 TABLET 2 TAB PO (19:40)
[2018-06-07] MEDS: GABAPENTIN 300 MG CAPSULE PO (20:51)
[2018-06-08 00:22] VITALS: BP 107/56; PULSE 88; RESP 18; TEMP 36.7; O2SAT 96
[2018-06-08] MEDS: HYDROCODONE/ACET 5/325 TABLET 2 TAB PO (02:27)
[2018-06-08 05:49] VITALS: BP 125/73; PULSE 73; RESP 16; TEMP 36.6
[2018-06-08 08:26] VITALS: BP 111/70; PULSE 92; RESP 16; TEMP 36.7; O2SAT 96
[2018-06-08 09:10] LABS: Add Manual Diff / Slide Review NO; Basophils Percent Auto 0.3 % (0-2); Eosinophils Percent Auto 0.3 % (2-4); Hematocrit 45.1 % (41-53); Lymphocytes Percent Auto 13.6 % (25-40); Mean Corpuscular HGB Conc 35.4 % (30-36); Mean Corpuscular Hemoglobin 31.5 PG (26-34); Mean Corpuscular Volume 88.7 fL (80-100); Monocytes Percent Auto 8.1 % (3-14); Neutrophils Absolute Auto 14900 /uL (3000-5900); Neutrophils Percent Auto 77.7 % (50-75); Platelet Count 253 X10^3/uL (150-400); Red Blood Cell Count 5.08 X10^6/uL (4.5-5.9); Red Cell Distribution Width 12.9 % (11.6-14.8); White Blood Cell Count 19.2 X10^3/uL (4.5-11.0)
[2018-06-08 09:23] LABS: BUN Creatinine Ratio 23.3 (6-22); Blood Urea Nitrogen 14 mg/dL (9-20); Calcium 9.6 mg/dL (8.4-10.2); Carbon Dioxide 22 mmol/L (22-32); Chloride 100 mmol/L (98-107); Estimated Glomerular Filt Rate > 60.0 mL/min (>60); Glucose 290 mg/dL (70-100); HEMOLYSIS < 15 (0-50); Sodium 139 mmol/L (137-145)
[2018-06-08] MEDS: KETOROLAC 30 MG/ML VIAL IV ×2 (09:41→18:04)
[2018-06-08] MEDS: ENOXAPARIN 40 MG/0.4 ML SYRINGE SUBCUT (09:41)
[2018-06-08] MEDS: GABAPENTIN 300 MG CAPSULE PO ×2 (09:41→21:37)
--- NOTE | 2018-06-08 09:58 | PM.CN ---
History of Present Illness Date Patient Seen: 06/08/18 Time Patient Seen: 09:58 Chief complaint: wants boil in anus area checked Reason for consult: diabetes Requesting provider: Chuck Montemayor Narrative: THIS IS A VERY PLEASANT 28-YEAR-OLD MALE WITH NO SIGNIFICANT PAST MEDICAL HISTORY. PATIENT DENIES ANY PRIOR KNOWLEDGE OF DIABETES. HE REPORTED HOWEVER THAT THERE IS A STRONG FAMILY HISTORY OF DIABETES. IN PARTICULAR HIS MOM AND HIS AUNT BOTH HAVE DIABETES. HE WAS ADMITTED TO THE HOSPITAL DUE TO A RECTAL ABSCESS WHICH IS BEING MANAGED BY SURGERY AT THIS POINT. BLOOD SUGARS HAVE BEEN REMAINING SIGNIFICANTLY HIGH SINCE ADMISSION. FOR THIS REASON WE ARE CONSULTED TO HELP WITH DIABETIC MANAGEMENT HE DENIES ANY POLYURIA OR POLYDIPSIA. NO FEVER OR CHILLS. NO CHEST PAIN OR SHORTNESS OF BREATH. NO SWELLING TO LOWER EXTREMITIES. NO NUMBNESS TINGLING TO EXTREMITIES. HE ALSO DENIED ANY DIFFICULTY SWALLOWING. NO DIARRHEA. NO CONSTIPATION. NO BLURRY VISION. NO BLOOD PER RECTUM OR IN URINE. HE HAD NO OTHER COMPLAINTS AT THIS TIME. [facility] Medical History Healthy adult (Chronic) Family History Mother Atrial fibrillation Social History household members: family Smoking Status: Current every day smoker alcohol intake: current Meds Home Medications Medication Instructions Recorded Confirmed Type No Known Home Medications 06/07/18 06/07/18 History Allergies Allergy/AdvReac Type Severity Reaction Status Date / Time No Known Drug Allergies Allergy Verified 06/07/18 06:28 Review of Systems Review of Systems All systems reviewed & are unremarkable except as noted in HPI and below Exam Vital Signs (past 8 hours): - 06/08/18 05:49 06/08/18 08:26 Temperature 97.9 F 98.0 F Pulse Rate 73 92 H Respiratory Rate 16 16 Blood Pressure 125/73 111/70 Pulse Oximetry 96 Oxygen Delivery Method Room Air Oxygen Flow Rate 0 Narrative Exam Narrative: NO ACUTE DISTRESS. PATIENT IS ALERT ORIENTED X3. VITAL SIGNS STABLE HEAD ATRAUMATIC NORMOCEPHALIC NECK : SUPPLE WITHOUT ADENOPATHY NO CAROTID BRUITS EYE: EOMI, PERRLA, NORMAL CONJUNCTIVA; NO JAUNDICE CHEST: REGULAR RATE. NO RUBS. PMI IS NON DISPLACED. NO MURMURS; NORMAL S1-S2 PULMONARY: DECREASED BS OVER THE BASES. MILD BIBASILAR CRACKLES NOTED; NO INCREASED DULLNESS TO PERCUSSION ABDOMEN: SOFT. NONTENDER. NONDISTENDED. BOWEL SOUNDS ARE PRESENT IN ALL 4 QUADRANTS. NO MASS. EXTREMITIES: NO EDEMA.. NO CYANOSIS CLUBBING NOTED. NEURO: CRANIAL NERVES 2-12 GROSSLY INTACT. NO FOCAL NEUROLOGICAL DEFICIT NOTED. MSK: NORMAL RANGE OF MOTION FOR AGE. NO JOINT EFFUSION. SKIN: NORMAL FOR ETHNICITY; NO ECCHYMOSIS. NO LESION. GOOD TURGOR.; NO RASHES ; OPEN AEAR WITH DRESSING TO RECTAL AREA; SEROSANGUINOUS DRAINAGE : NORMAL EXTERNAL GENITALIA. PSYCH : APPROPRIATE MOOD AND AFFECT. ALERT AWAKE ORIENTED X3 Objective Labs Result Diagrams: 06/08/18 08:40 06/08/18 08:40 Labs: Laboratory Results - last 24 hr 06/08/18 06/08/18 06/08/18 08:40 08:40 08:40 WBC 19.2 H RBC 5.08 Hgb 16.0 Hct 45.1 MCV 88.7 MCH 31.5 MCHC 35.4 RDW 12.9 Plt Count 253 Neut % (Auto) 77.7 H Lymph % (Auto) 13.6 L [place] % (Auto) 8.1 Eos % (Auto) 0.3 L Baso % (Auto) 0.3 Neut # (Auto) 30020 H Sodium 139 Potassium 4.0 Chloride 100 Carbon Dioxide 22 BUN 14 Creatinine 0.60 L Estimated GFR > 60.0 BUN/Creatinine Ratio 23.3 H Glucose 290 H Hemoglobin A1c 11.0 H Calcium 9.6 Assessment & Plan Plan: Assessment/Plan Narrative: IMPRESSION AND PLAN STATUS POST I&D OF PERIANAL ABSCESS. PATIENT TO BE STABLE. THIS IS BEING MANAGED BY SURGERY ATTENDING. APPEARED TO BE CLINICALLY IMPROVED. UNCONTROLLED DIABETES. HEMOGLOBIN A1C OF 11; BECAUSE OF HIS AGE; PATIENT WILL BE STARTED ON ORAL AGENT FOR NOW WITH METFORMIN AND GLYBURIDE ORDERED. A SLIDING SCALE WILL BE ORDERED ACHS FOR NOW; WILL CONSIDER INSULIN THERAPY IF INDICATED ON DISPOSITION ; ADDITIONAL MANAGEMENT INDICATED OBESITY. LIFESTYLE CHANGES RECOMMENDED. OUTPATIENT MANAGEMENT LEUKOCYTOSIS. SECONDARY TO ACUTE INFECTIOUS PROCESS. ANTIBIOTICS PER SURGICAL TEAM ADDITIONAL MEASURES INDICATED CLINICALLY. WE APPRECIATE THIS KIND CONSULT AND WILL GLADLY FOLLOW WITH YOU
--- NOTE | 2018-06-08 10:09 | P.CONS_ITS ---
History of Present Illness Date Patient Seen: 06/08/18 Time Patient Seen: 09:58 Chief complaint: wants boil in anus area checked Reason for consult: diabetes Requesting provider: Chuck Montemayor Narrative: THIS IS A VERY PLEASANT 28-YEAR-OLD MALE WITH NO SIGNIFICANT PAST MEDICAL HISTORY. PATIENT DENIES ANY PRIOR KNOWLEDGE OF DIABETES. HE REPORTED HOWEVER THAT THERE IS A STRONG FAMILY HISTORY OF DIABETES. IN PARTICULAR HIS MOM AND HIS AUNT BOTH HAVE DIABETES. HE WAS ADMITTED TO THE HOSPITAL DUE TO A RECTAL ABSCESS WHICH IS BEING MANAGED BY SURGERY AT THIS POINT. BLOOD SUGARS HAVE BEEN REMAINING SIGNIFICANTLY HIGH SINCE ADMISSION. FOR THIS REASON WE ARE CONSULTED TO HELP WITH DIABETIC MANAGEMENT HE DENIES ANY POLYURIA OR POLYDIPSIA. NO FEVER OR CHILLS. NO CHEST PAIN OR SHORTNESS OF BREATH. NO SWELLING TO LOWER EXTREMITIES. NO NUMBNESS TINGLING TO EXTREMITIES. HE ALSO DENIED ANY DIFFICULTY SWALLOWING. NO DIARRHEA. NO CONSTIPATION. NO BLURRY VISION. NO BLOOD PER RECTUM OR IN URINE. HE HAD NO OTHER COMPLAINTS AT THIS TIME. [facility] Medical History Healthy adult (Chronic) Family History Mother Atrial fibrillation Social History household members: family Smoking Status: Current every day smoker alcohol intake: current Meds Home Medications Medication Instructions Recorded Confirmed Type No Known Home Medications 06/07/18 06/07/18 History Allergies Allergy/AdvReac Type Severity Reaction Status Date / Time No Known Drug Allergies Allergy Verified 06/07/18 06:28 Review of Systems Review of Systems All systems reviewed & are unremarkable except as noted in HPI and below Exam Vital Signs (past 8 hours): - 06/08/18 05:49 06/08/18 08:26 Temperature 97.9 F 98.0 F Pulse Rate 73 92 H Respiratory Rate 16 16 Blood Pressure 125/73 111/70 Pulse Oximetry 96 Oxygen Delivery Method Room Air Oxygen Flow Rate 0 Narrative Exam Narrative: NO ACUTE DISTRESS. PATIENT IS ALERT ORIENTED X3. VITAL SIGNS STABLE HEAD ATRAUMATIC NORMOCEPHALIC NECK : SUPPLE WITHOUT ADENOPATHY NO CAROTID BRUITS EYE: EOMI, PERRLA, NORMAL CONJUNCTIVA; NO JAUNDICE CHEST: REGULAR RATE. NO RUBS. PMI IS NON DISPLACED. NO MURMURS; NORMAL S1- S2 PULMONARY: DECREASED BS OVER THE BASES. MILD BIBASILAR CRACKLES NOTED; NO INCREASED DULLNESS TO PERCUSSION ABDOMEN: SOFT. NONTENDER. NONDISTENDED. BOWEL SOUNDS ARE PRESENT IN ALL 4 QUADRANTS. NO MASS. EXTREMITIES: NO EDEMA.. NO CYANOSIS CLUBBING NOTED. NEURO: CRANIAL NERVES 2-12 GROSSLY INTACT. NO FOCAL NEUROLOGICAL DEFICIT NOTED. MSK: NORMAL RANGE OF MOTION FOR AGE. NO JOINT EFFUSION. SKIN: NORMAL FOR ETHNICITY; NO ECCHYMOSIS. NO LESION. GOOD TURGOR.; NO RASHES ; OPEN AEAR WITH DRESSING TO RECTAL AREA; SEROSANGUINOUS DRAINAGE : NORMAL EXTERNAL GENITALIA. PSYCH : APPROPRIATE MOOD AND AFFECT. ALERT AWAKE ORIENTED X3 Objective Labs Result Diagrams: 06/08/18 08:40 06/08/18 08:40 Labs: Laboratory Results - last 24 hr 06/08/18 06/08/18 06/08/18 08:40 08:40 08:40 WBC 19.2 H RBC 5.08 Hgb 16.0 Hct 45.1 MCV 88.7 MCH 31.5 MCHC 35.4 RDW 12.9 Plt Count 253 Neut % (Auto) 77.7 H Lymph % (Auto) 13.6 L [place] % (Auto) 8.1 Eos % (Auto) 0.3 L Baso % (Auto) 0.3 Neut # (Auto) 41189 H Sodium 139 Potassium 4.0 Chloride 100 Carbon Dioxide 22 BUN 14 Creatinine 0.60 L Estimated GFR > 60.0 BUN/Creatinine Ratio 23.3 H Glucose 290 H Hemoglobin A1c 11.0 H Calcium 9.6 Assessment & Plan Plan: Assessment/Plan Narrative: IMPRESSION AND PLAN STATUS POST I&D OF PERIANAL ABSCESS. PATIENT TO BE STABLE. THIS IS BEING MANAGED BY SURGERY ATTENDING. APPEARED TO BE CLINICALLY IMPROVED. UNCONTROLLED DIABETES. HEMOGLOBIN A1C OF 11; BECAUSE OF HIS AGE; PATIENT WILL BE STARTED ON ORAL AGENT FOR NOW WITH METFORMIN AND GLYBURIDE ORDERED. A SLIDING SCALE WILL BE ORDERED ACHS FOR NOW; WILL CONSIDER INSULIN THERAPY IF INDICATED ON DISPOSITION ; ADDITIONAL MANAGEMENT INDICATED OBESITY. LIFESTYLE CHANGES RECOMMENDED. OUTPATIENT MANAGEMENT LEUKOCYTOSIS. SECONDARY TO ACUTE INFECTIOUS PROCESS. ANTIBIOTICS PER SURGICAL TEAM ADDITIONAL MEASURES INDICATED CLINICALLY. WE APPRECIATE THIS KIND CONSULT AND WILL GLADLY FOLLOW WITH YOU
--- NOTE | 2018-06-08 12:33 | CM.DANOTE ---
DCP/Assessment: Reviewed chart. Patient is a 28yr old male admitted to [facility] for [facility] abscess. No PCP listed. Patient currently has no medical insurance/self pay status. Met with patient explained CM/SW role. Patient reports that he resides with his family in [place]. Patient is recently employed with [employer]. Patient reports that he plans to d/c home when medically stable. Patient reports that he is completely I in all ADL's. Provided patient with information/assistance to apply for Medicaid. In addition, placed call to Radha with admit counselors requesting that she attempt to start application during hospitalization. Patient reports that he does have male family members that can assist with dressing changes if needed. Patient's Mother/Sivan at bedside and she does not think she would be able to do it. Patient with high blood sugars and may also be newly diagnosed with diabetes. Patient encouraged to follow up with outpatient clinic i.e. [facility] vs. Medicaid provider once/if plan assigned. Patient agreeable. P: Home when medically stable. SANG Foster Discharge Planning/Care Management Discharge Assessment Start: 06/08/18 12:29 Freq: Status: Active Protocol: Document 06/08/18 12:30 KJS (Rec: 06/08/18 12:33 KJS [id number]) Discharge Planning Assessment Assigned Computed Tomography Scanner Operator SANG Foster Contact Information Yoko Garcia Advance Directives? No History Provided By Patient Family Member Prior Living Arrangements Mobile home Household Members family Type of transporation used prior to Drives own vehicle admit Independent with ADL's Yes Is patient alert and oriented? Yes Caregiver for Another No Barriers to Discharge No Discharge Plan Home Transportation Arrangement Family to provide transport when medically stable. Referrals Initiated Other Additional Comment Assistance to apply for health insurance provided. In addition, spoke with Radha with admit counselor group and she will meet with patient today. Whiteboard Updated in Patient Room with Yes name and ext. # of Computed Tomography Scanner Operator Review Status In Process Please Provide Date Initial DC 06/08/18 Assessment Was Performed Next Review Type Continued Stay Review
[2018-06-08] MEDS: glyBURIDE 2.5 MG TABLET PO (13:49)
[2018-06-08] MEDS: METFORMIN HCL 500 MG TABLET PO ×2 (13:49→16:53)
[2018-06-08] MEDS: INSULIN ASPART 100 UNIT/ML INSULN PEN SUBCUT ×2 (13:53→16:51)
--- NOTE | 2018-06-08 15:26 | DIET.PN ---
Consult for new dx DM Met w/pt in his room. Reports dx is totally new to him and knows nothing. Usual diet is typical for [facility] culture with white rice three times daily. also drinks sugared soda, but states he will not be doing that anymore. Diet: CCD med (45g CHO/meal) Assessment: new dx DM. Poor knowledge, but pt appears very receptive to education. Intervention: Provided introduction to diet management of DM, including consistent carb diet, carbs in foods, portion control. Had pt choose dinner meal using guide of 45g carb for meal Plan: Will need f/u diet ed
--- NOTE | 2018-06-08 15:45 | PC.NURSE ---
SHIFT SUMMARY: CLARIFIED W/ THIS AM, INSTRUCTED TO REMOVE PACKING PRIOR TO BM, THEN SHOWER, THEN SITZ BATH. THIS WAS DONE THIS MORNING AND PATIENT HAD ANOTHER BM THIS AFTERNOON AND INTERVENTIONS ABOVE REPEATED AGAIN. ORDER FOR SITZ QID. PACKING IS LEFT OUT. CLARIFIED W/ THIS AM; NOTED THAT NO ABX ORDERED. MD STATES THIS IS CORRECT. NO FURTHER ORDERS PERTAINING TO SAME.
[2018-06-08 16:02] VITALS: BP 127/80; PULSE 85; RESP 20; TEMP 36.7; O2SAT 95
--- NOTE | 2018-06-08 17:24 | PC.NURSE ---
Addendum entered by Susanne Ibarra R.N. 06/08/18 19:52: Pt independent in shower for third time this evening shift d/t movement of bowels. Discussed with Dr. Montemayor addition of new meds to treat elevated glucose. Per pt, explained to pt this may be the explanation for frequent, loose stools. Original Note: Addendum entered by Susanne Ibarra R.N. 06/08/18 18:24: Pt reports has taken second shower this shift. Now states able to control bowels. Instructed pt to notify staff when ready for sitz bath this evening and pt verbalizes understanding. States pain 4/10 and was given toradol as per report this provided excellent pain relief. Visualized pt's buttocks and inner buttocks and unable to see open area. Pt has tucked 4 x 4 (x 2) between buttock cheeks and no drainage noted. Changed this gauze. Pt reports now wearing pull up brief, d/t fecal urgency and incontinence. IV antibiotic infusing as per Dr. Montemayor's orders. Original Note: Pt denies need for pain medications at this time. Awake, alert, conversant in bed talking on telephone. Moves side to side independently in bed. Reports to CATALOGUE ILLUSTRATOR who reports to this insurance underwriter sales, pt unable to control stool and is incontinent. Showered. Dr. Montemayor in house and was informed.
--- NOTE | 2018-06-08 17:53 | PM.PNPO.1 ---
Subjective Date Patient Seen: 06/08/18 Time Patient Seen: 17:30 Interval history: Patient seen by our technical solutions consultant/waiter/waitress first class and begun on diabetes medicine. Appreciate that note. Pain is markedly improved. Pain is much better. He is incontinent of some stool which is not that unusual. It skin hard for me to get a handle on exactly how much she is leaking. He has been taking showers after bowel movements and using the Sitz baths. Exam Vital Signs (past 8 hours): - 06/08/18 16:02 Temperature 98.0 F Pulse Rate 85 Respiratory Rate 20 Blood Pressure 127/80 Pulse Oximetry 95 Oxygen Delivery Method Room Air Oxygen Flow Rate 0 Narrative Exam Narrative: Buttock much less tender. There is some purulent drainage from the I&D site. Induration is decreased of the perianal tissues. Objective Labs Result Diagrams: 06/08/18 08:40 06/08/18 08:40 Labs: Laboratory Results - last 24 hr 06/08/18 06/08/18 06/08/18 08:40 08:40 08:40 WBC 19.2 H RBC 5.08 Hgb 16.0 Hct 45.1 MCV 88.7 MCH 31.5 MCHC 35.4 RDW 12.9 Plt Count 253 Neut % (Auto) 77.7 H Lymph % (Auto) 13.6 L [place] % (Auto) 8.1 Eos % (Auto) 0.3 L Baso % (Auto) 0.3 Neut # (Auto) 28824 H Sodium 139 Potassium 4.0 Chloride 100 Carbon Dioxide 22 BUN 14 Creatinine 0.60 L Estimated GFR > 60.0 BUN/Creatinine Ratio 23.3 H Glucose 290 H Hemoglobin A1c 11.0 H Calcium 9.6 Assessment & Plan Post-op Postoperative Procedures Operation Date: 06/07/18 13:45 Actual Procedures Side Surgeon p Incision and Drainage Perirectal Abscess Chuck Montemayor MD Postoperative day: 1 Postoperative status: doing well Postoperative status narrative: Patient has diabetes. He has been losing weight in an unexplained fashion. His hemoglobin 1 AC is a Bradley indicating this is a chronic rather than acute issue. His sugar levels of probably been exacerbated by the infectious process. Postoperative plan narrative: Because of his culture results which are little unusual with strep B I will start him on Unasyn and await the remaining culture results. I am doing this because of his rising white blood cell count id his poorly controlled blood glucose level. Encouraged him that he will need to find a family doctor in the near future.
--- NOTE | 2018-06-08 17:57 | P.PN_ITS ---
Subjective Date Patient Seen: 06/08/18 Time Patient Seen: 17:30 Interval history: Patient seen by our analytical consultant/client support consultant and begun on diabetes medicine. Appreciate that note. Pain is markedly improved. Pain is much better. He is incontinent of some stool which is not that unusual. It skin hard for me to get a handle on exactly how much she is leaking. He has been taking showers after bowel movements and using the Sitz baths. Exam Vital Signs (past 8 hours): - 06/08/18 16:02 Temperature 98.0 F Pulse Rate 85 Respiratory Rate 20 Blood Pressure 127/80 Pulse Oximetry 95 Oxygen Delivery Method Room Air Oxygen Flow Rate 0 Narrative Exam Narrative: Buttock much less tender. There is some purulent drainage from the I&D site. Induration is decreased of the perianal tissues. Objective Labs Result Diagrams: 06/08/18 08:40 06/08/18 08:40 Labs: Laboratory Results - last 24 hr 06/08/18 06/08/18 06/08/18 08:40 08:40 08:40 WBC 19.2 H RBC 5.08 Hgb 16.0 Hct 45.1 MCV 88.7 MCH 31.5 MCHC 35.4 RDW 12.9 Plt Count 253 Neut % (Auto) 77.7 H Lymph % (Auto) 13.6 L [place] % (Auto) 8.1 Eos % (Auto) 0.3 L Baso % (Auto) 0.3 Neut # (Auto) 28819 H Sodium 139 Potassium 4.0 Chloride 100 Carbon Dioxide 22 BUN 14 Creatinine 0.60 L Estimated GFR > 60.0 BUN/Creatinine Ratio 23.3 H Glucose 290 H Hemoglobin A1c 11.0 H Calcium 9.6 Assessment & Plan Post-op Postoperative Procedures Operation Date: 06/07/18 13:45 Actual Procedures Side Surgeon p Incision and Drainage Perirectal Abscess Chuck Montemayor MD Postoperative day: 1 Postoperative status: doing well Postoperative status narrative: Patient has diabetes. He has been losing weight in an unexplained fashion. His hemoglobin 1 AC is a Bradley indicating this is a chronic rather than acute issue. His sugar levels of probably been exacerbated by the infectious process. Postoperative plan narrative: Because of his culture results which are little unusual with strep B I will start him on Unasyn and await the remaining culture results. I am doing this because of his rising white blood cell count id his poorly controlled blood glucose level. Encouraged him that he will need to find a family doctor in the near future.
[2018-06-08] MEDS: AMPICILLIN/SULBACTAM 3 GM 3 GM in SODIUM CHLORIDE 0.9% 100 ML IV ×2 (18:04→23:47)
[2018-06-08 19:49] VITALS: BP 107/67; PULSE 88; RESP 18; TEMP 36.7; O2SAT 95
[2018-06-08] MEDS: SODIUM CHLORIDE 0.9% FLUSH 10 ML IV (21:37)
[2018-06-09 02:06] VITALS: BP 105/66; PULSE 73; RESP 16; TEMP 36.7; O2SAT 95
[2018-06-09] MEDS: HYDROCODONE/ACET 5/325 TABLET 2 TAB PO (03:59)
[2018-06-09] MEDS: AMPICILLIN/SULBACTAM 3 GM 3 GM in SODIUM CHLORIDE 0.9% 100 ML IV ×3 (06:08→18:04)
[2018-06-09 06:21] VITALS: BP 112/73; PULSE 84; RESP 16; TEMP 36.6; O2SAT 97
[2018-06-09 07:20] VITALS: BP 121/82; PULSE 81; RESP 20; TEMP 36.5; O2SAT 99
[2018-06-09 08:58] LABS: Add Manual Diff / Slide Review NO; Basophils Percent Auto 0.5 % (0-2); Eosinophils Percent Auto 1.5 % (2-4); Hematocrit 42.7 % (41-53); Hemoglobin 15.1 g/dL (13.5-17.5); Mean Corpuscular HGB Conc 35.5 % (30-36); Mean Corpuscular Hemoglobin 31.3 PG (26-34); Mean Corpuscular Volume 88.1 fL (80-100); Monocytes Percent Auto 10.7 % (3-14); Neutrophils Absolute Auto 7100 /uL (1500-7000); Neutrophils Percent Auto 65.3 % (50-75); Platelet Count 224 X10^3/uL (150-400); Red Blood Cell Count 4.84 X10^6/uL (4.5-5.9); Red Cell Distribution Width 12.6 % (11.6-14.8); White Blood Cell Count 10.9 X10^3/uL (4.5-11.0)
[2018-06-09] MEDS: KETOROLAC 30 MG/ML VIAL IV (09:01)
[2018-06-09] MEDS: METFORMIN HCL 500 MG TABLET PO ×2 (09:02→17:00)
[2018-06-09] MEDS: ENOXAPARIN 40 MG/0.4 ML SYRINGE SUBCUT (09:02)
[2018-06-09] MEDS: glyBURIDE 2.5 MG TABLET PO ×2 (09:02→21:12)
[2018-06-09] MEDS: GABAPENTIN 300 MG CAPSULE PO ×2 (09:02→21:13)
[2018-06-09] MEDS: INSULIN ASPART 100 UNIT/ML INSULN PEN SUBCUT ×2 (09:03→11:58)
[2018-06-09] MEDS: SODIUM CHLORIDE 0.9% FLUSH 10 ML IV ×2 (09:04→21:12)
[2018-06-09 09:11] LABS: Alanine Aminotransferase 33 IU/L (21-72); Albumin 3.5 g/dL (3.5-5.0); Albumin Globulin Ratio 1.1 (1.0-2.8); Alkaline Phosphatase 77 U/L (38-126); Aspartate Aminotransferase 27 IU/L (17-59); BUN Creatinine Ratio 18.3 (6-22); Bilirubin Total 0.5 mg/dL (0.2-1.3); Blood Urea Nitrogen 11 mg/dL (9-20); Calcium 8.9 mg/dL (8.4-10.2); Carbon Dioxide 26 mmol/L (22-32); Chloride 100 mmol/L (98-107); Estimated Glomerular Filt Rate > 60.0 mL/min (>60); Globulin 3.2 g/dL (1.7-4.1); Glucose 205 mg/dL (70-100); HEMOLYSIS < 15 (0-50); Potassium 3.6 mmol/L (3.4-5.1); Sodium 138 mmol/L (137-145); Total Protein 6.7 g/dL (6.3-8.2)
[2018-06-09 11:00] VITALS: BP 129/75; PULSE 81; RESP 24; TEMP 36.4; O2SAT 97
--- NOTE | 2018-06-09 11:04 | P.PN_ITS ---
Subjective Date Patient Seen: 06/09/18 Time Patient Seen: 07:00 Interval history: PATIENT IS FEELING BETTER NO SIGNIFICANT ISSUES OVERNIGHT QUESTIONS AND CONCERNS ADDRESSED Exam Vital Signs (past 8 hours): - 06/09/18 06:21 06/09/18 07:20 Temperature 97.9 F 97.7 F Pulse Rate 84 81 Respiratory Rate 16 20 Blood Pressure 112/73 121/82 Pulse Oximetry 97 99 Oxygen Delivery Method Room Air Oxygen Flow Rate 0 Narrative Exam Narrative: NO ACUTE DISTRESS. PATIENT IS ALERT ORIENTED X3. VITAL SIGNS STABLE HEAD ATRAUMATIC NORMOCEPHALIC NECK : SUPPLE WITHOUT ADENOPATHY NO CAROTID BRUITS EYE: EOMI, PERRLA, NORMAL CONJUNCTIVA; NO JAUNDICE CHEST: REGULAR RATE. NO RUBS. PMI IS NON DISPLACED. NO MURMURS; NORMAL S1- S2 PULMONARY: DECREASED BS OVER THE BASES. MILD BIBASILAR CRACKLES NOTED; NO INCREASED DULLNESS TO PERCUSSION ABDOMEN: SOFT. NONTENDER. NONDISTENDED. BOWEL SOUNDS ARE PRESENT IN ALL 4 QUADRANTS. NO MASS. EXTREMITIES: NO EDEMA.. NO CYANOSIS CLUBBING NOTED. NEURO: CRANIAL NERVES 2-12 GROSSLY INTACT. NO FOCAL NEUROLOGICAL DEFICIT NOTED. MSK: NORMAL RANGE OF MOTION FOR AGE. NO JOINT EFFUSION. SKIN: NORMAL FOR ETHNICITY; NO ECCHYMOSIS. NO LESION. GOOD TURGOR.; NO RASHES ; OPEN AEAR WITH DRESSING TO RECTAL AREA; SEROSANGUINOUS DRAINAGE : NORMAL EXTERNAL GENITALIA. PSYCH : APPROPRIATE MOOD AND AFFECT. ALERT AWAKE ORIENTED X3 Objective Labs Result Diagrams: 06/09/18 08:25 06/09/18 08:25 Labs: Laboratory Results - last 24 hr 06/09/18 06/09/18 08:25 08:25 WBC 10.9 RBC 4.84 Hgb 15.1 Hct 42.7 MCV 88.1 MCH 31.3 MCHC 35.5 RDW 12.6 Plt Count 224 Neut % (Auto) 65.3 Lymph % (Auto) 22.0 L [place] % (Auto) 10.7 Eos % (Auto) 1.5 L Baso % (Auto) 0.5 Neut # (Auto) 7100 H Sodium 138 Potassium 3.6 Chloride 100 Carbon Dioxide 26 BUN 11 Creatinine 0.60 L Estimated GFR > 60.0 BUN/Creatinine Ratio 18.3 Glucose 205 H Calcium 8.9 Total Bilirubin 0.5 AST 27 ALT 33 Alkaline Phosphatase 77 Total Protein 6.7 Albumin 3.5 Globulin 3.2 Albumin/Globulin Ratio 1.1 Assessment & Plan Plan: Assessment/Plan Narrative: IMPRESSION AND PLAN STATUS POST I&D OF PERIANAL ABSCESS. PATIENT TO BE STABLE. THIS IS BEING MANAGED BY SURGERY ATTENDING. APPEARED TO BE CLINICALLY STABLE; OK TO DC HOME IF OK WITH SURGICAL TEAM; UNCONTROLLED DIABETES. HEMOGLOBIN A1C OF 11; BECAUSE OF HIS AGE; PATIENT WILL BE STARTED ON ORAL AGENT FOR NOW; METFORMIN AND GLYBURIDE BID IS APPROPRIATE ON DC . CONSIDER A SLIDING SCALE ACHS WITH HUMALOG VS NOVOLOG ON DISPOSITION; CM / SW TO HELP IN OBTAINING DM SUPPLIES; INSULIN THERAPY TO BE CONSIDER OUTPATIENT IS A1C DOES NOT IMPROVE WITH DIET AND ORAL MEDS ; ADDITIONAL MANAGEMENT INDICATED OBESITY. LIFESTYLE CHANGES RECOMMENDED. OUTPATIENT MANAGEMENT LEUKOCYTOSIS. SECONDARY TO ACUTE INFECTIOUS PROCESS. ANTIBIOTICS PER SURGICAL TEAM; RESOLVED PATIENT APPEARS MEDICALLY STABLE ADDITIONAL MANAGEMENT OF HIS DM PER OUTPATIENT PROVIDERS WILL SIGN OFF THANK YOU MUCH FOR CONSULT WE APPRECIATE THIS KIND CONSULT
--- NOTE | 2018-06-09 12:15 | DIET.PN ---
Follow up with patient to discuss new diagnosis of diabetes and care. 1. Discussed pathophysiology of diabetes. Reviewed A1c and its correlation to blood glucose numbers. Discussed recommended BG ranges. 2. Discussed importance of self-monitoring, how often, and when to check. Recommended pt purchase glucometer. Provided recommendations of meters to purchase out of pocket. 3. Reviewed hyper/hypoglycemia and treatment. 4. Provided several handouts for review. Monitor: Follow up weight CBG, PO intake, additional questions/concerns from patient.
--- NOTE | 2018-06-09 14:19 | PC.NURSE ---
patient has had 6 loose bm's this shift. has showered after all bm's and has had sitz bath this afternoon x1. pain controlled w/ toradol. provided handouts on Diabetes to patient to review. he did stick his own finger and apply sample to strip this afternoon. his blood sugars are improving. his wbc is now normal, afebrile all shift. pleasant and cooperative.
[2018-06-09 15:45] VITALS: BP 133/74; PULSE 87; RESP 18; TEMP 36.9; O2SAT 96
--- NOTE | 2018-06-09 18:34 | P.PN_ITS ---
Subjective Date Patient Seen: 06/09/18 Time Patient Seen: 18:31 Interval history: Glucose down to normal. Buttock feeling much better. Not having any fevers. Is having difficulty controlling stool. He has a sense that he has to go but he can't always keep it from coming out. The amount of incontinence varies. Exam Vital Signs (past 8 hours): - 06/09/18 11:00 06/09/18 15:45 Temperature 97.6 F 98.4 F Pulse Rate 81 87 Respiratory Rate 24 18 Blood Pressure 129/75 133/74 Pulse Oximetry 97 96 Oxygen Delivery Method Room Air Oxygen Flow Rate 0 Narrative Exam Narrative: Wound much better looking. No induration. No cellulitis or unusual tenderness. Vital signs noted. Objective Labs Result Diagrams: 06/09/18 08:25 06/09/18 08:25 Labs: Laboratory Results - last 24 hr 06/09/18 06/09/18 08:25 08:25 WBC 10.9 RBC 4.84 Hgb 15.1 Hct 42.7 MCV 88.1 MCH 31.3 MCHC 35.5 RDW 12.6 Plt Count 224 Neut % (Auto) 65.3 Lymph % (Auto) 22.0 L [place] % (Auto) 10.7 Eos % (Auto) 1.5 L Baso % (Auto) 0.5 Neut # (Auto) 7100 H Sodium 138 Potassium 3.6 Chloride 100 Carbon Dioxide 26 BUN 11 Creatinine 0.60 L Estimated GFR > 60.0 BUN/Creatinine Ratio 18.3 Glucose 205 H Calcium 8.9 Total Bilirubin 0.5 AST 27 ALT 33 Alkaline Phosphatase 77 Total Protein 6.7 Albumin 3.5 Globulin 3.2 Albumin/Globulin Ratio 1.1 Assessment & Plan Post-op Postoperative Procedures Operation Date: 06/07/18 13:45 Actual Procedures Side Surgeon p Incision and Drainage Perirectal Abscess Chuck Montemayor MD Postoperative day: 2 Postoperative status narrative: Now doing well. Sugars much better controlled on glyburide and metformin. Will try to arrange for discharge in the morning. Postoperative plan narrative: Discharge in the morning. Will need diabetic supplies. Continue warm Sitz baths.
[2018-06-09 19:41] VITALS: BP 120/75; PULSE 86; RESP 18; TEMP 36.8; O2SAT 98
[2018-06-10] MEDS: AMPICILLIN/SULBACTAM 3 GM 3 GM in SODIUM CHLORIDE 0.9% 100 ML IV ×2 (00:13→06:12)
[2018-06-10] MEDS: SODIUM CHLORIDE 0.9% FLUSH 10 ML IV ×2 (00:13→09:05)
[2018-06-10 00:28] VITALS: BP 128/83; PULSE 75; RESP 16; TEMP 36.6; O2SAT 91
[2018-06-10 03:43] VITALS: BP 121/77; PULSE 76; RESP 16; TEMP 36.6; O2SAT 97
--- NOTE | 2018-06-10 04:34 | PC.NURSE ---
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 Pt indep took a shower after he had BM. There was a scant amount of drainage on the gauze he removed. Denies pain
[2018-06-10 08:00] VITALS: BP 120/80; PULSE 73; RESP 16; TEMP 37; O2SAT 97
[2018-06-10] MEDS: GABAPENTIN 300 MG CAPSULE PO (09:04)
[2018-06-10] MEDS: glyBURIDE 2.5 MG TABLET PO (09:04)
[2018-06-10] MEDS: METFORMIN HCL 500 MG TABLET PO (09:04)
[2018-06-10] MEDS: ENOXAPARIN 40 MG/0.4 ML SYRINGE SUBCUT (09:05)
[2018-06-10 11:30] VITALS: BP 125/80; PULSE 80; RESP 16; TEMP 36.7; O2SAT 96
--- NOTE | 2018-06-10 11:56 | P.DS_ITS ---
History of Present Illness Date Patient Seen: 06/10/18 Time Patient Seen: 11:51 Chief complaint: wants boil in anus area checked Narrative: 28-year-old male who presented with progressive perianal pain. Examination and evaluation were consistent with abscess. He was taken to the operating room for incision and drainage with placement of seton. Postoperatively he was admitted to the regular surgical floor for convalescence and care. Discharge Providers Date of admission: 06/07/18 10:20 Consults: 06/07/18 16:45 Consult to Discharge Planning Routine Comment: 06/08/18 13:50 Consult to Dietitian, Adult Routine Comment: Reason For Exam: Diabetes 06/08/18 17:58 Consult to Physician Routine Comment: Patient has already been seen Consulting Provider: Pat Noriega Reason for consultation: new diabetic Has provider been notified: Yes Discharge provider: Franco Flood MD Discharge Date: 06/10/18 Summary Discharge Diagnosis: 1. Perirectal abscess 2. Incision and drainage of perirectal abscess 3. Placement of seton 4. Hyperglycemia consistent with diabetes Hospital Course: Patient was admitted and underwent the above urgent surgical procedures without difficulty. Postoperatively he was admitted to the regular surgical floor. While there he remained afebrile but had elevated white blood cell count along with blood glucose levels. He was placed on oral hypoglycemic medications to which he responded well. Pain was well controlled with oral analgesia. Tolerating regular diet by the time of discharge. Ambulating without difficulty. He has had return spontaneously of normal bowel and bladder function although his stools somewhat loose. This is not unanticipated. He was maintained on Unasyn postoperatively, and he will be discharged home on Levaquin to complete a 1 week course. He will continue his current hygiene regimen of shower and Sitz baths. This was reviewed with him in detail. Packing was removed and he no longer requires packing changes. He is otherwise hemodynamically stable. Because of his good condition he is discharged home today. He will follow up next week in the surgery clinic. However, he has been instructed to call or return sooner for fever, chills, nausea, vomiting, inability to tolerate a diet, progressive pain, or further purulent drainage. He was also educated regarding signs and symptoms of hyperglycemia and hypoglycemia. All questions were answered to his satisfaction, and he voiced understanding. Status at Discharge Cognitive/behavioral status at discharge: Alert, oriented x3 Functional status at discharge: independent ambulation Overall status at discharge: patient is progressing back to baseline Time Spent with Patient Less than 30 minutes Exam Vital Signs (past 8 hours): - 06/10/18 08:00 Temperature 98.6 F Pulse Rate 73 Respiratory Rate 16 Blood Pressure 120/80 Pulse Oximetry 97 Oxygen Delivery Method Room Air Oxygen Flow Rate 0 Narrative Exam Narrative: Well-nourished well-developed male in no acute distress. Alert oriented x3 Regular rate and rhythm Chest clear to auscultation bilaterally Abdomen soft, nondistended, nontender Perianal region shows healing abscess cavity with no purulent drainage or significant induration. Appropriately tender. Extremities show no clubbing, cyanosis, or edema Objective Labs Result Diagrams: 06/09/18 08:25 06/09/18 08:25 Labs: No new radiographic studies for review Intraoperative cultures showed Streptococcus species for which he is receiving antibiotics Discharge Plan Discharge Plan Patient Disposition: Home Discharge comment: You had a large abscess near her anus. You presently have a string holding open the tract. This is called a seton. It will gradually make its way through the tissues. I will see in my office periodically. You need to establish care with a family doctor to manage your diabetes. You will need to molded goods spot picker lancets and alcohol wipes to prick your fingers to test your blood for glucose levels. You should do this every morning before breakfast. You should keep a record and bring that record with you to your doctor's appointments. Discharge Med Rec/Prescriptions Prescriptions: New metformin 500 mg tablet 500 mg PO BID Qty: 60 RF: 0 glyburide 2.5 mg tablet 2.5 mg PO BID Qty: 60 RF: 0 oxycodone-acetaminophen [Percocet] 5-325 mg tablet See Label Instructions .ROUTE .COMPLEX PRN (Reason: pain) Qty: 20 RF: 0 diabetes monitor Qty: 1 RF: 0 diabetes strips Qty: 1 RF: 0 hydrocodone-acetaminophen 5-325 mg tablet 1 tab PO Q4HR PRN (Reason: pain) Qty: 20 RF: 0 levofloxacin [Levaquin] 750 mg tablet 750 mg PO DAILY Qty: 5 RF: 0 Follow up/Referrals: Chuck Montemayor MD [Physician] - 06/16/18 12:00 am (Please call office for exact appointment time) Provider Discharge Instructions Diet: Diet as Tolerated and Carb-consistent/Diabetic Activity: As tolerated Other treatments: Warm Sitz baths 4-6 per day. Warm shower after bowel movements. Keep gauze between cheeks. Change as needed. Skin/Wound/Dressing Care Report to your healthcare provider any signs of infection, such as:: chills, fever, night sweats and increased pain Dressing: May apply dry gauze dressing within undergarment as often as needed Visit Report/Discharge Packet Instructions: How to Check Your Blood Glucose, Complications of Type 2 Diabetes , Carbohydrate-Counting Diet, DI for Hyperglycemia -- Adult Visit Report Forms: Stroke Signs & Symptoms Discharge Data Attending Provider: Chuck Montemayor Admtrent Date/Time: 06/07/18 10:20
--- NOTE | 2018-06-10 12:04 | CM.DPC ---
DCP Discharge Home: Per Surgeon, pt is medically stable to d/c home with family today and no identified barriers to discharge. Previous SW provided pt with health insurance resources and Medicaid application and PCP resources to establish with an MD at d/c. Pt resides with family in [place] who can assist if needed at d/c. Plan: Patient to d/c home today via family POV and follow up appointments scheduled with [facility] office. SANG Diaz
== END 2018-06-10 13:09 | disposition home or self-care (01) | DRG 951 ==
LOC: ED 10:19 → AC 10:23
PROVIDERS: Emergency Medicine; Hospitalist; Admitting Provider Specialist; Emergency Provider Emergency Medicine; Visit Provider Specialist
PROC: 0J9B0ZZ Drainage of Perineum Subcutaneous Tissue and Fascia, Open Approach (ICD-10-PCS; CPT 46040; principal; 2018-06-07 13:45)
DX: K61.0 Anal abscess (principal); K60.3 Anal fistula; E11.65 Type 2 diabetes mellitus with hyperglycemia; F17.210 Nicotine dependence, cigarettes, uncomplicated; B95.1 Streptococcus, group B, as the cause of diseases classified elsewhere; Z23 Encounter for immunization
CPT/HCPCS: 36415; 36591; 46060; 74177; 80048; 80053; 81003; 82962; 83036; 83605; 85025; 87070; 87075; 87077; 87186; 87205; 90471; 90656; 96365; 96366; 96367; 96375; 99283; 99285; 99406; J0295; J0330; J1100; J1650; J1885; J2405; J2704; J3010; Q2038

== ENCOUNTER 2018-10-13 08:04 | Emergency (ER) | payer OTHER, MEDICAID, SELFPAY ==
[2018-06-07 11:13] VITALS: BMI 29.1
[2018-10-13 08:15] VITALS: BP 138/94; PULSE 113; RESP 20; TEMP 36.9; O2SAT 99; BMI 32.4
--- NOTE | 2018-10-13 08:18 | ED.SKABFB ---
HPI - Skin/Abscess/Foreign Bdy General Chief complaint: Skin/Abscess/Foreign Body Stated complaint: boil on lt bottom cheek popped, diabetic Time Seen by Provider: 10/13/18 08:17 Source: patient and old records reviewed Mode of arrival: ambulatory Limitations: no limitations History of Present Illness HPI narrative: This is a 28-year-old male who comes to the emergency department with complaint of boil on his buttock which is draining. Patient states he has had symptoms for about 2 days. Yesterday he spent the entire day sitting on a chair so he thinks that worsened his symptoms. patient states he is becoming increasingly painful, when he sat down on the toilet this morning it popped and drained bloody purulence fluid. Patient states the pain immediately improved. This is similar to the area when he had in the past. He was seen by myself in May of 2018. Patient had a large perirectal abscess and was also diagnosed at that time as a diabetic. He states he has been taking metformin and glyburide and his A1c has improved from 11-8 and now in the 7 range. Patient states that he has noticed over the several months that when he wipes occasionally he will have little bit of pain or small amount of blood in that area as well. he has not had any other issues with boils or infections. he states otherwise he has been doing well. He denies any fevers, no nausea or vomiting. No chills. No issues with bowel movements or urination. He took 1 oxycodone yesterday that he had left over from his surgery. He states today that his pain is 2/10. Related Data Home Medications Medication Instructions Recorded Confirmed atorvastatin 10 mg PO DAILY 10/13/18 10/13/18 Previous Rx's Medication Instructions Recorded diabetes monitor #1 ea 06/09/18 diabetes strips #1 each 06/09/18 glyburide 2.5 mg PO BID #60 tab 06/09/18 metformin 500 mg PO BID #60 tab 06/09/18 levofloxacin [Levaquin] 750 mg PO DAILY #7 tab 10/13/18 Allergies Allergy/AdvReac Type Severity Reaction Status Date / Time No Known Drug Allergies Allergy Verified 06/07/18 06:28 Review of Systems Review of Systems ROS Unobtainable: All systems reviewed & are unremarkable except as noted in HPI and below Constitutional Denies chills, Denies excessive sweating, Denies fever(s) and Denies lethargy Gastrointestinal Gastrointestinal: Denies abdominal pain, Denies change in bowel habits, Denies diarrhea, Denies nausea, Denies vomiting and Reports other (Pain in left buttock) Genitourinary Denies difficulty urinating Integumentary/Breasts Reports bleeding lesions and Reports other (Draining abscess) Endocrine Denies excessive sweating [facility] Medical History (Updated 10/13/18 @ 08:47 by Charmaine Kelley DO) Diabetes (Chronic) Healthy adult (Chronic) Family History Mother Atrial fibrillation Social History household members: family Smoking Status: Current every day smoker alcohol intake: current Social History household members: family Smoking Status: Current every day smoker alcohol intake: current Exam Narrative Exam Narrative: GENERAL: Alert and oriented x three, well-nourished, well-appearing male in mild distress. HEENT: Head normocephalic, atraumatic, EOMI, pupils reactive, face symmetric, moist mucous membranes NECK: Supple, full range of motion CARDIOVASCULAR: Regular rate and rhythm without murmurs, rubs or gallops. RESPIRATORY: Breath sounds equal bilaterally, no wheezes rales or rhonchi. ABDOMEN: Soft, nontender. Normoactive bowel sounds all 4 quadrants. No guarding or rebound, rigidity, no mass. patient's left buttock has an area of induration with a central area of fluctuance that is draining bloody purulence fluid, the opening is about a 0.5 cm in size. With palpation I am able to express an additional 15 cc of purulence fluid. Culture was obtained. Patient is moderately increased tenderness with palpation. There is no surrounding erythema. : No CVA tenderness EXTREMITIES: Normal range of motion, no clubbing or edema. Neurovascularly intact. Normal gait. NEUROLOGICAL: Cranial nerves II through XII grossly intact. Moving all extremities SKIN: Warm, dry, no petechiae, no rashes or lesions. Initial Vital Signs Initial Vital Signs: Vital Signs Temperature 98.5 F 10/13/18 08:15 Pulse Rate 113 H 10/13/18 08:15 Respiratory Rate 20 10/13/18 08:15 Blood Pressure 138/94 H 10/13/18 08:15 Pulse Oximetry 99 10/13/18 08:15 Course Orders Ordered: Discontinued Medications Levofloxacin (Levaquin) 750 mg in 150 mls @ 100 mls/hr IV NOW ONE Stop: 10/13/18 10:06 Last Infusion: 10/13/18 10:55 Dose: 0 mls/hr Admin: 10/13/18 09:16 Dose: 100 mls/hr Ibuprofen (Advil) 800 mg PO NOW ONE Stop: 10/13/18 08:39 Last Admin: 10/13/18 08:58 Dose: 800 mg Vital Signs - 8 hr 10/13/18 08:15 10/13/18 10:26 Temperature 98.5 F Pulse Rate 113 H 82 Respiratory Rate 20 16 Blood Pressure 138/94 H Blood Pressure [Left Arm] 108/68 Pulse Oximetry 99 98 MDM - Skin/Abscess/Foreign Bdy Lab Data Result diagrams: 10/13/18 08:50 10/13/18 08:50 Lab Results 10/13/18 10/13/18 10/13/18 Range/Units 08:50 08:50 08:50 WBC 9.3 (4.5-11.0) X10^3/uL RBC 5.28 (4.5-5.9) X10^6/uL Hgb 16.3 (13.5-17.5) g/dL Hct 46.5 (41-53) % MCV 88.1 (80-100) fL MCH 30.9 (26-34) PG MCHC 35.1 (30-36) % RDW 12.5 (11.6-14.8) % Plt Count 213 (150-400) X10^3/uL Neut % (Auto) 65.1 (50-75) % Lymph % (Auto) 23.7 L (25-40) % [place] % (Auto) 8.1 (3-14) % Eos % (Auto) 2.5 (2-4) % Baso % (Auto) 0.6 (0-2) % Neut # (Auto) 6000 (5814-8024) /uL Lymph # (Auto) 2200 (8961-1684) /uL [place] # (Auto) 700 (0-900) /uL Eos # (Auto) 200 (0-450) /uL Baso # (Auto) 100 (0-100) /uL Sodium 137 (137-145) mmol/L Potassium 3.7 (3.4-5.1) mmol/L Chloride 100 (98-107) mmol/L Carbon Dioxide 25 (22-32) mmol/L BUN 9 (9-20) mg/dL Creatinine 0.70 (0.66-1.25) mg/dL Estimated GFR > 60.0 (>60) mL/min BUN/Creatinine Ratio 12.9 (6-22) Glucose 151 H (70-100) mg/dL Lactate (0.7-2.1) mmol/L Calcium 9.2 (8.4-10.2) mg/dL Total Bilirubin 1.0 (0.2-1.3) mg/dL AST 23 (17-59) IU/L ALT 28 (21-72) IU/L Alkaline Phosphatase 64 (38-126) U/L Total Protein 7.5 (6.3-8.2) g/dL Albumin 4.4 (3.5-5.0) g/dL Globulin 3.1 (1.7-4.1) g/dL Albumin/Globulin Ratio 1.4 (1.0-2.8) Procalcitonin < 0.05 (<0.5) ng/mL 10/13/18 Range/Units 08:50 WBC (4.5-11.0) X10^3/uL RBC (4.5-5.9) X10^6/uL Hgb (13.5-17.5) g/dL Hct (41-53) % MCV (80-100) fL MCH (26-34) PG MCHC (30-36) % RDW (11.6-14.8) % Plt Count (150-400) X10^3/uL Neut % (Auto) (50-75) % Lymph % (Auto) (25-40) % [place] % (Auto) (3-14) % Eos % (Auto) (2-4) % Baso % (Auto) (0-2) % Neut # (Auto) (4213-6102) /uL Lymph # (Auto) (7780-7088) /uL [place] # (Auto) (0-900) /uL Eos # (Auto) (0-450) /uL Baso # (Auto) (0-100) /uL Sodium (137-145) mmol/L Potassium (3.4-5.1) mmol/L Chloride (98-107) mmol/L Carbon Dioxide (22-32) mmol/L BUN (9-20) mg/dL Creatinine (0.66-1.25) mg/dL Estimated GFR (>60) mL/min BUN/Creatinine Ratio (6-22) Glucose (70-100) mg/dL Lactate 2.8 H (0.7-2.1) mmol/L Calcium (8.4-10.2) mg/dL Total Bilirubin (0.2-1.3) mg/dL AST (17-59) IU/L ALT (21-72) IU/L Alkaline Phosphatase (38-126) U/L Total Protein (6.3-8.2) g/dL Albumin (3.5-5.0) g/dL Globulin (1.7-4.1) g/dL Albumin/Globulin Ratio (1.0-2.8) Procalcitonin (<0.5) ng/mL MDM Narrative Medical decision making narrative: 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 Lab work a dose of IV antibiotics was started. Patient was initially on Unasyn and discharged on Levaquin p.o, cultures were reviewed. Patient's blood sugars have been maintained in the 150 region at home. At this time unless there is significant changes on lab work and patient's wound is currently draining would not reimage him at this time. Will discuss with Dr. Montemayor who is on for General surgery after patient's lab work has returned. Patient's vitals are normal, received a dose of IV Levaquin. He continued have some mild drainage but nothing excessive. Patient's lab work does not show major abnormalities. Spoke with Dr. Montemayor who agrees that patient needs short-term follow-up would like to see him no later than Tuesday. I do not feel Dr. Montemayor agrees that patient needs to be hospitalized at this time. Patient is comfortable with this plan. Did give him a work note as it would be quite difficult for him to work effectively with a draining abscess. We discussed reasons to return to the ER and signs and symptoms to watch for. Discharge Plan Departure Patient Disposition: Home Clinical Impression: Abscess, perianal Discharge Date/Time: 10/13/18 11:09 Interventions: ED Discharge Assessment Last Done: 10/13/18 11:07 Instructions: DI for Anal Abscess Activity Restrictions/Additional Instructions: Follow up with Dr. Montemayor with general surgery, call the office. Dr. Montemayor would like to see you Tuesday or Tuesday. Continue oral antibiotics until gone. Prescription sent to [facility] pharmacy in [place] Continue warm compresses, sitz baths 4 times daily until improved. Return to the ER for fevers greater than 100.4 F, worsening swelling or spreading redness, increasing pain, increasing amounts of drainage, abdominal pain, pain with bowel movements, lightheadedness or passing-out, shortness of breath, chest pain, persistent vomiting or other new or concerning symptoms. Prescriptions: New levofloxacin [Levaquin] 750 mg tablet 750 mg PO DAILY Qty: 7 RF: 0 No Action metformin 500 mg tablet 500 mg PO BID Qty: 60 RF: 0 glyburide 2.5 mg tablet 2.5 mg PO BID Qty: 60 RF: 0 diabetes monitor Qty: 1 RF: 0 diabetes strips Qty: 1 RF: 0 atorvastatin 10 mg tablet 10 mg PO DAILY RF: 0 Referrals: Chuck Montemayor MD [Physician] - Stand Alone Forms: Work Release Note
--- NOTE | 2018-10-13 08:37 | PC.NURSE ---
Inside of left buttocks copious amount of puss and blood draining upon exam
[2018-10-13] MEDS: IBUPROFEN 400 MG TABLET 800 MG PO (08:58)
[2018-10-13 09:01] LABS: Add Manual Diff / Slide Review NO; Basophils Absolute Auto 100 /uL (0-100); Basophils Percent Auto 0.6 % (0-2); Eosinophils Absolute Auto 200 /uL (0-450); Eosinophils Percent Auto 2.5 % (2-4); Hematocrit 46.5 % (41-53); Hemoglobin 16.3 g/dL (13.5-17.5); Lymphocytes Absolute Auto 2200 /uL (1100-4500); Lymphocytes Percent Auto 23.7 % (25-40); Mean Corpuscular HGB Conc 35.1 % (30-36); Mean Corpuscular Hemoglobin 30.9 PG (26-34); Mean Corpuscular Volume 88.1 fL (80-100); Monocytes Absolute Auto 700 /uL (0-900); Monocytes Percent Auto 8.1 % (3-14); Neutrophils Absolute Auto 6000 /uL (1500-7000); Neutrophils Percent Auto 65.1 % (50-75); Platelet Count 213 X10^3/uL (150-400); Red Blood Cell Count 5.28 X10^6/uL (4.5-5.9); Red Cell Distribution Width 12.5 % (11.6-14.8); White Blood Cell Count 9.3 X10^3/uL (4.5-11.0)
[2018-10-13 09:15] LABS: Lactate (Lactic Acid) 2.8 mmol/L (0.7-2.1)
[2018-10-13 09:16] LABS: Alanine Aminotransferase 28 IU/L (21-72); Albumin 4.4 g/dL (3.5-5.0); Albumin Globulin Ratio 1.4 (1.0-2.8); Alkaline Phosphatase 64 U/L (38-126); Aspartate Aminotransferase 23 IU/L (17-59); BUN Creatinine Ratio 12.9 (6-22); Blood Urea Nitrogen 9 mg/dL (9-20); Calcium 9.2 mg/dL (8.4-10.2); Carbon Dioxide 25 mmol/L (22-32); Chloride 100 mmol/L (98-107); Estimated Glomerular Filt Rate > 60.0 mL/min (>60); Globulin 3.1 g/dL (1.7-4.1); Glucose 151 mg/dL (70-100); HEMOLYSIS 18 (0-50); Potassium 3.7 mmol/L (3.4-5.1); Sodium 137 mmol/L (137-145); Total Protein 7.5 g/dL (6.3-8.2)
[2018-10-13] MEDS: levoFLOXacin 750 MG/150 ML PIGGYBACK 100 MG IV (09:16)
[2018-10-13 09:32] LABS: Procalcitonin < 0.05 ng/mL (<0.5)
[2018-10-13 10:26] VITALS: BP 108/68; PULSE 82; RESP 16; O2SAT 98
[2018-10-13 10:57] LABS: Reflexed Lactate in 2 Hours Y
== END 2018-10-13 11:09 | disposition home or self-care (01) ==
PROVIDERS: Emergency Provider Emergency Medicine
DX: K61.0 Anal abscess (principal)
CPT/HCPCS: 36591; 80053; 83605; 84145; 85025; 87040; 87070; 87077; 87186; 87205; 96365; 96366; 99283; 99284; J1956

== ENCOUNTER 2018-10-19 13:58 | Day surgery (SDC) | payer OTHER, MEDICAID, SELFPAY ==
[2018-06-07 11:13] VITALS: BMI 29.1
[2018-10-19] VITALS (8 sets, daily range): BP systolic 117–135; BP diastolic 82–99; PULSE 78–100; RESP 16–17; TEMP 36.2–37.2; O2SAT 96–99; BMI 33.6
[2018-10-19] MEDS: LACTATED RINGERS 1,000 ML 42 ML IV (15:00)
--- NOTE | 2018-10-19 15:37 | PM.PREOP ---
Pre-operative Note Interval Note History & Physical reviewed/Exam performed by Physician: Yes Changes to H&P: No
[2018-10-19] MEDS: DIBUCAINE 1% OINT 28 GM 1 APPLIC TOP (16:10)
--- NOTE | 2018-10-19 16:31 | PM.OP.1 ---
Operative Date/Time/Diagnoses Date of procedure: 10/19/18 Time of procedure: 16:31 Post-op diagnosis: same Procedure & Clinicians Procedure: Anal exam under anesthesia. Removal of seton with fistulotomy. Drainage of perirectal abscess. Same procedure as scheduled: Yes Indications: Pus draining from adjacent to the anus. Longstanding seton in place. Surgeon: Chuck Montemayor Click Yes if Unassisted: Yes Anesthesia Type: General Operative Notes Findings: Very deep perirectal abscess I could not demonstrate an internal opening. It was under the area however wary seton has been present since May. Closure Type: not applicable Specimen(s): none sent Estimated Blood Loss (mL): 50 Blood products transfused: none Procedure in detail: Patient was placed margot-knife prone on the operating table after r undergoing general endotracheal anesthesia. he was prepped and draped in the usual fashion. if I readily identified the seton which was still present. It had eroded through quite a bit of the tissue it was tied under. Using the seton as a guide I completed the fistulotomy. It involved a very small area sphincter. There was no other internal lesions seen. However there was induration of the skin of the perirectal tissues to the hartman the buttock. I made an incision paralleling the sphincter muscle and obtained pus. I extended this slightly and dropped into a large cavity adjacent to the rectum. I could not identify an internal opening connecting this with the prior of inflammatory process. I copiously irrigated the space and packed with gauze. Dressings were applied. the patient was returned to his bed. he was extubated and taken to the recovery area in good condition. Complications: none Condition: stable Disposition: PACU
[2018-10-19] MEDS: fentaNYL 100 MCG/2 ML INJ 50 MCG IV (16:55)
[2018-10-19] MEDS: OXYCODONE/ACETAMINOPHEN 5/325 TABLET 1 TAB PO (17:05)
== END 2018-10-19 17:53 | disposition home or self-care (01) ==
PROVIDERS: Visit Provider Specialist
PROC: (CPT 45990; principal; 2018-10-19 16:15)
DX: K61.0 Anal abscess (principal); E11.9 Type 2 diabetes mellitus without complications; F17.210 Nicotine dependence, cigarettes, uncomplicated; Z79.84 Long term (current) use of oral hypoglycemic drugs
CPT/HCPCS: 46285; J3010

== ENCOUNTER 2022-10-20 07:53 | Emergency (ER) | payer OTHER, MEDICAID, SELFPAY ==
[2018-06-07 11:13] VITALS: BMI 29.1
[2022-10-20] VITALS (8 sets, daily range): BP systolic 97–127; BP diastolic 52–76; PULSE 101–123; RESP 13–24; TEMP 37.3; O2SAT 94–96; BMI 31.8
--- NOTE | 2022-10-20 08:26 | ED.GENADULT ---
HPI - General Adult General Chief complaint: Upper Respiratory Symptoms Stated complaint: headache and ear pain Time Seen by Provider: 10/20/22 08:09 Source: patient Mode of arrival: Family Vehicle History of Present Illness HPI narrative: 32-year-old male daily smoker with history hypertension, hyperlipidemia, diabetes presents with a chief complaint left-sided ear pain sore throat and a gradually worsening headache over the past few days. He denies any fever but states he has felt a bit achy with chills. He denies runny nose. He admits to a sore throat which is worse in the left side but denies any significant difficulty in swallowing. He is had no chest pain, shortness of breath or cough. He denies abdominal pain but has been mildly nauseated. He denies constipation or diarrhea. He is had no dysuria, frequency or urgency. He denies any exposure to ill persons. He states his headache has been gradually worsening, he denies any recent trauma, use of blood thinners, neck pain. He has no blurred vision or trouble with speech. He denies obvious provocation, palliation or radiation of his discomfort and states it is generalized, perhaps worse on the left side and seems to be associated with his ear pain. He denies any change in his ability to hear from his left ear and denies any drainage. He denies any change in medication and has been taking his diabetic meds as prescribed. He is had a slightly decreased appetite and states he normally drinks a rather large amount of coffee but has not had any today. Related Data Home Medications Medication Instructions Recorded Confirmed atorvastatin 10 mg tablet 10 mg PO DAILY 10/13/18 01/07/20 cholecalciferol (vitamin D3) 25 1,000 unit PO DAILY 10/17/18 01/07/20 mcg (1,000 unit) capsule lisinopril PO 04/10/19 01/07/20 Previous Rx's Medication Instructions Recorded diabetes monitor #1 ea 06/09/18 diabetes strips #1 ea 06/09/18 oxycodone-acetaminophen 5 mg-325 1 tab PO Q4-6H PRN painful 10/19/18 mg tablet (Percocet) procedure #20 tabs metformin 500 mg tablet 500 mg PO BID #60 tabs 01/07/20 ketorolac 10 mg tablet 10 mg PO Q6H PRN pain #14 tabs 10/20/22 ketorolac 10 mg tablet 10 mg PO Q6H PRN pain #14 tabs 10/20/22 ondansetron 4 mg disintegrating 4 mg PO TID-QID PRN nausea and 10/20/22 tablet vomiting #10 tabs ondansetron 4 mg disintegrating 4 mg PO TID-QID PRN nausea and 10/20/22 tablet vomiting #10 tabs Allergies Allergy/AdvReac Type Severity Reaction Status Date / Time No Known Drug Allergies Allergy Verified 01/07/20 09:17 Review of Systems Review of Systems Narrative: GENERAL: See HPI HEENT: See HPI RESPIRATORY: Denies dyspnea, cough, wheezing, hemoptysis, sputum. CARDIOVASCULAR: See HPI GASTROINTESTINAL: Denies nausea, vomiting, abdominal pain, diarrhea, constipation, melena. : Denies dysuria, frequency, incontinence, hematuria, urinary retention. MUSCULOSKELETAL: denies weakness, joint pain, or bony pain SKIN: Denies rash, skin lesions, or other NEUROLOGIC: Denies weakness, headache, numbness, change in speech, confusion, seizures, incoordination. PSYCHIATRIC: No concerning psychosocial issues. 12 point review of systems is negative except for those stated above Patient History Medical History Diabetes [id number] Healthy adult Surgical History History of rectal surgery (~05/2018) Family History Mother Atrial fibrillation Diabetes mellitus Father Stroke Sister Cancer Social History household members: family Smoking Status: Current every day smoker alcohol intake: current substance use type: does not use Smoking Status: Current every day smoker tobacco type: vaping alcohol intake frequency: a few times a week Substance Use Type: does not use Exam Narrative Exam Narrative: GENERAL: [32] year old patient appears stated age. Well-developed patient, in mild distress. HEAD: Atraumatic. Normocephalic. EYES: Pupils equal round and reactive. Extraocular motions intact. No scleral icterus. No injection or drainage. ENT: Nose without bleeding, purulent drainage. Left tonsil with slight edema and whitish exudate, airway patent, no uvular pointing or other evidence of abscess. B/L tympanic membranes clear, flat with normal cone of light and landmarks. NECK: Trachea midline. Non tender CARDIOVASCULAR: Tachycardic but regular rhythm without murmurs, gallops, or rubs. RESPIRATORY: Clear to auscultation. Breath sounds equal bilaterally. No wheezes, rales, or rhonchi. GASTROINTESTINAL: Abdomen soft, non-tender, nondistended. EXTREMITIES: No edema or joint tenderness. BACK: Nontender without deformity or crepitance. No flank tenderness. NEURO: AOx3. SKIN: No rash or erythema of visible areas Initial Vital Signs Initial Vital Signs: Vital Signs Temperature 99.1 F 10/20/22 08:04 Pulse Rate 123 H 10/20/22 08:04 Respiratory Rate 24 10/20/22 08:04 Blood Pressure 120/60 10/20/22 08:04 Pulse Oximetry 96 10/20/22 08:04 Oxygen Delivery Method Room Air 10/20/22 08:04 Course Orders Ordered: ED Orders 10/20/22 08:10 Respiratory Panel (Film Array) Stat 10/20/22 08:29 Complete Blood Count AUTO DIFF Stat Comprehensive Metabolic Panel Stat Lactate (Lactic Acid) Stat Magnesium Stat 10/20/22 08:31 VBG [Venous Blood Gas] Stat 10/20/22 08:44 Strep Grp A by PCR Rapid Stat Throat Culture Stat 10/20/22 08:56 Blood Culture Stat Discontinued Medications Lactated Ringer's (Lactated Ringers) 1,000 mls @ 1,000 mls/hr IV BOLUS ONE Stop: 10/20/22 09:21 Last Infusion: 10/20/22 09:40 Dose: 0 mls/hr Documented By: Admin: 10/20/22 08:39 Dose: 1,000 mls/hr Documented By: RADHA Lactated Ringer's (Lactated Ringers) 1,000 mls @ 1,000 mls/hr IV BOLUS ONE Stop: 10/20/22 10:26 Last Infusion: 10/20/22 10:33 Dose: 0 mls/hr Documented By: Admin: 10/20/22 09:41 Dose: 1,000 mls/hr Documented By: AMU Ketorolac Tromethamine (Ketorolac 30 Mg/Ml Vial) 15 mg IV NOW ONE Stop: 10/20/22 08:23 Last Admin: 10/20/22 08:42 Dose: 15 mg Documented By: RADHA Penicillin G Benzathine (Penicillin G Benzathine 1,200,000 Unit/2 Ml Syringe) 1,200,000 unit IM NOW ONE Stop: 10/20/22 09:28 Last Admin: 10/20/22 09:41 Dose: 1,200,000 unit Documented By: TITO Vital Signs Vital signs: Vital Signs - 8 hr 10/20/22 08:04 10/20/22 08:42 10/20/22 08:10 Temperature 99.1 F 99.1 F Pulse Rate 123 H 122 H Respiratory Rate 24 Blood Pressure 120/60 Pulse Oximetry 96 96 Oxygen Delivery Method Room Air 10/20/22 08:30 10/20/22 08:30 Temperature Pulse Rate 119 H Respiratory Rate 13 Blood Pressure 121/76 Pulse Oximetry 96 Oxygen Delivery Method Medical Decision Making Lab Data 10/20/22 08:29 10/20/22 08:29 Labs: Lab Results 10/20/22 10/20/22 10/20/22 Range/Units 08:10 08:29 08:29 WBC 19.1 H (4.5-11.0) X10^3/uL RBC 5.07 (4.5-5.9) X10^6/uL Hgb 15.8 (13.5-17.5) g/dL Hct 45.0 (41-53) % MCV 88.8 (80-100) fL MCH 31.1 (26-34) PG MCHC 35.0 (30-36) % RDW 12.4 (11.6-14.8) % Plt Count 186 (150-400) X10^3/uL Neut % (Auto) 83.9 H (50-75) % Lymph % (Auto) 7.6 L (25-40) % Aiken % (Auto) 8.1 (3-14) % Eos % (Auto) 0.0 L (2-4) % Baso % (Auto) 0.4 (0-2) % Neut # (Auto) 44477 H (4436-1901) /uL Lymph # (Auto) 1500 (6025-2679) /uL Aiken # (Auto) 1500 H (0-900) /uL Eos # (Auto) 0 (0-450) /uL Baso # (Auto) 100 (0-100) /uL VBG pH (7.33-7.43) VBG pCO2 (45-50) mmHg VBG pO2 (35-45) mmHg VBG HCO3 (24-28) mmol/L VBG Total CO2 (24-29) mmol/L VBG O2 Saturation (70-75) % VBG Base Excess (0-4) mmol/L FiO2 Sodium 130 L (137-145) mmol/L Potassium 3.4 (3.4-5.1) mmol/L Chloride 96 L (98-107) mmol/L Carbon Dioxide 24 (22-32) mmol/L BUN 9 (9-20) mg/dL Creatinine 0.66 (0.66-1.25) mg/dL Estimated GFR > 60 (>60) mL/min BUN/Creatinine Ratio 13.6 (6-22) Glucose 209 H (70-100) mg/dL Lactate (0.7-2.1) mmol/L Calcium 8.8 (8.4-10.2) mg/dL Magnesium 1.7 (1.6-2.3) mg/dL Total Bilirubin 1.9 H (0.2-1.3) mg/dL AST 22 (17-59) IU/L ALT 25 (<50) IU/L Alkaline Phosphatase 76 (38-126) U/L Total Protein 7.6 (6.3-8.2) g/dL Albumin 4.2 (3.5-5.0) g/dL Globulin 3.4 (1.7-4.1) g/dL Albumin/Globulin Ratio 1.2 (1.0-2.8) Chlamy pneumoniae PCR Not detected (Not Detect) Adenovirus (PCR) Not detected (Not Detect) B. pertussis DNA (PCR) Not detected (Not Detecte) B.parapertussis DNA PCR Not detected (Not Detecte) Coronavirus OC43 (PCR) Not detected (Not Detect) Coronavirus HKU1 (PCR) Not detected (Not Detect) Coronavirus 229E (PCR) Not detected (Not Detect) SARS-CoV-2 (PCR) Not detected (Not Detecte) Coronavirus NL63 (PCR) Not detected (Not Detect) Human Metapneumovir PCR Not detected (Not Detect) Influenza Type A (PCR) Not detected (Not Detect) Influenza Type B (PCR) Not detected (Not Detect) M. pneumoniae (PCR) Not detected (Not Detect) Parainfluenza 1 (PCR) Not detected (Not Detect) Parainfluenza 2 (PCR) Not detected (Not Detect) Parainfluenza 3 (PCR) Not detected (Not Detect) Parainfluenza 4 (PCR) Not detected (Not Detect) RSV (PCR) Not detected (Not Detect) Entero/Rhino (PCR) Not detected (Not Detect) Group A Strep (PCR) (Negative) 10/20/22 10/20/22 10/20/22 Range/Units 08:29 08:31 08:44 WBC (4.5-11.0) X10^3/uL RBC (4.5-5.9) X10^6/uL Hgb (13.5-17.5) g/dL Hct (41-53) % MCV (80-100) fL MCH (26-34) PG MCHC (30-36) % RDW (11.6-14.8) % Plt Count (150-400) X10^3/uL Neut % (Auto) (50-75) % Lymph % (Auto) (25-40) % Aiken % (Auto) (3-14) % Eos % (Auto) (2-4) % Baso % (Auto) (0-2) % Neut # (Auto) (7118-3857) /uL Lymph # (Auto) (9222-5194) /uL Aiken # (Auto) (0-900) /uL Eos # (Auto) (0-450) /uL Baso # (Auto) (0-100) /uL VBG pH 7.45 H (7.33-7.43) VBG pCO2 38.8 L (45-50) mmHg VBG pO2 60 H (35-45) mmHg VBG HCO3 27 (24-28) mmol/L VBG Total CO2 28 (24-29) mmol/L VBG O2 Saturation 92 H (70-75) % VBG Base Excess 3.0 (0-4) mmol/L FiO2 21 Sodium (137-145) mmol/L Potassium (3.4-5.1) mmol/L Chloride (98-107) mmol/L Carbon Dioxide (22-32) mmol/L BUN (9-20) mg/dL Creatinine (0.66-1.25) mg/dL Estimated GFR (>60) mL/min BUN/Creatinine Ratio (6-22) Glucose (70-100) mg/dL Lactate 1.2 (0.7-2.1) mmol/L Calcium (8.4-10.2) mg/dL Magnesium (1.6-2.3) mg/dL Total Bilirubin (0.2-1.3) mg/dL AST (17-59) IU/L ALT (<50) IU/L Alkaline Phosphatase (38-126) U/L Total Protein (6.3-8.2) g/dL Albumin (3.5-5.0) g/dL Globulin (1.7-4.1) g/dL Albumin/Globulin Ratio (1.0-2.8) Chlamy pneumoniae PCR (Not Detect) Adenovirus (PCR) (Not Detect) B. pertussis DNA (PCR) (Not Detecte) B.parapertussis DNA PCR (Not Detecte) Coronavirus OC43 (PCR) (Not Detect) Coronavirus HKU1 (PCR) (Not Detect) Coronavirus 229E (PCR) (Not Detect) SARS-CoV-2 (PCR) (Not Detecte) Coronavirus NL63 (PCR) (Not Detect) Human Metapneumovir PCR (Not Detect) Influenza Type A (PCR) (Not Detect) Influenza Type B (PCR) (Not Detect) M. pneumoniae (PCR) (Not Detect) Parainfluenza 1 (PCR) (Not Detect) Parainfluenza 2 (PCR) (Not Detect) Parainfluenza 3 (PCR) (Not Detect) Parainfluenza 4 (PCR) (Not Detect) RSV (PCR) (Not Detect) Entero/Rhino (PCR) (Not Detect) Group A Strep (PCR) Positive H (Negative) MDM Narrative Medical decision making narrative: CC: 32-year-old male with left ear pain, headache and sore throat Complicating co-morbidities: Hypertension, hyperlipidemia, smoking, diabetes Data collected from: Patient Medical records reviewed: Prior notes reviewed in our EMR Differential considered, but not limited to: COVID, flu, strep throat, diabetic emergency versus other Exam documented above, pertinent findings include: Patient is awake and alert, moist mucous membranes, some left-sided tonsillar swelling and exudate with minimal erythema, airway is patent. Lungs are clear without evidence of labored breathing, heart rate is tachycardic but regular Lab Test results independently reviewed as above. Pertinent findings: Independently reviewed EKG as above Treatments: Lactated Ringer's x2 L, ketorolac 15 mg, Pen G Re-evaluations: Patient feeling significant improvement with improved vital signs after the above-stated therapies Discussion: Patient with fever, sore throat and ear pain with left-sided headache for the past few days. Headache considerations include, but not limited to: Subarachnoid hemorrhage, but unlikely as patient denies sudden onset of pain, not worst of life, or neck pain Meningitis considered, but thought unlikely given lack of Brudzinski's, Kernig's sign, altered mental status or fever Giant cell arteritis considered, but thought unlikely given lack of unilateral findings, pain in amish, vision change HTN Emergency considered, but thought unlikely given normal vitals Other serious diagnoses considered unlikely given lack of red flag findings such as sudden onset, increasing frequency, immunocompromise, systemic signs (fever, chills, stiff neck, or rash), focal neurologic findings, trauma, blood thinners, etc. Symptoms most likely all related to strep. There is no evidence of diabetic emergency, symptoms greatly improved, no indication for further evaluation such as head CT, lumbar puncture versus other. Patient tolerating orals. Disposition: see below, along with detailed discharge instructions that have been reviewed with patient as well as indications for ED re-evaluation and additional outpatient follow up Discharge Plan Departure Patient Disposition: Home Clinical Impression: Strep pharyngitis Instructions: DI for Strep Throat Activity Restrictions/Additional Instructions: *You have been diagnosed with [various symptoms related to strep pharyngitis. As we discussed your history and physical exam, labs and response to therapies are very reassuring. Also, you will not need ongoing antibiotic treatment as the shot of penicillin G given today will cover this infection] *What to do: *Please continue to take your regular medications as directed. [ x] New medication prescriptions sent to your pharmacy: [[facility]] [ ] New medication written as a paper prescription [ ] No new medications given *Please follow up with your primary care provider in 2-3 days, call for an appointment. Let them know you were seen in the Emergency Department and that we ask that you be seen in follow up. We will electronically transmit a record of today's note if your PCP is in our system *If you do not have a primary care provider please contact the [facility] Resource line at [phone]. They will ask some questions about your medical history and help get you set up with a doctor in the community. *Return to Emergency Department if you should have any new, worsening or concerning symptoms, such as [fever greater than 101 F, shaking chills, worsening pain, persistent vomiting or other bothersome symptoms] Prescriptions: New ketorolac 10 mg tablet 10 mg PO Q6H PRN (Reason: pain) Qty: 14 0RF ondansetron 4 mg tablet,disintegrating 4 mg PO TID-QID PRN (Reason: nausea and vomiting) Qty: 10 0RF ketorolac 10 mg tablet 10 mg PO Q6H PRN (Reason: pain) Qty: 14 0RF ondansetron 4 mg tablet,disintegrating 4 mg PO TID-QID PRN (Reason: nausea and vomiting) Qty: 10 0RF No Action lisinopril PO metformin 500 mg tablet 500 mg PO BID Qty: 60 0RF cholecalciferol (vitamin D3) 1,000 unit capsule 1,000 unit PO DAILY (DME) diabetes monitor Qty: 1 0RF Dose Instruction: As directed Rx Instructions: As directed (DME) diabetes strips Qty: 1 0RF Dose Instruction: As directed Rx Instructions: As directed atorvastatin 10 mg tablet 10 mg PO DAILY oxycodone-acetaminophen [Percocet] 5-325 mg tablet 1 tab PO Q4-6H PRN (Reason: painful procedure) Qty: 20 0RF Referrals: Mary Lou Sheikh ARNP [Primary Care Provider] - Stand Alone Forms: Patient Portal/API
[2022-10-20 08:38] LABS: Fractionated Inspired Oxygen 21; HCO3 VBG 27 mmol/L (24-28); Oxygen Saturation VBG 92 % (70-75); PCO2 VBG 38.8 mmHg (45-50); PO2 VBG 60 mmHg (35-45); Total CO2 VBG 28 mmol/L (24-29); pH VBG 7.45 (7.33-7.43)
[2022-10-20 08:38] LABS: Add Manual Diff / Slide Review NO; Basophils Absolute Auto 100 /uL (0-100); Basophils Percent Auto 0.4 % (0-2); Eosinophils Absolute Auto 0 /uL (0-450); Hemoglobin 15.8 g/dL (13.5-17.5); Lymphocytes Absolute Auto 1500 /uL (1100-4500); Lymphocytes Percent Auto 7.6 % (25-40); Mean Corpuscular Hemoglobin 31.1 PG (26-34); Mean Corpuscular Volume 88.8 fL (80-100); Monocytes Absolute Auto 1500 /uL (0-900); Monocytes Percent Auto 8.1 % (3-14); Neutrophils Absolute Auto 16000 /uL (1500-7000); Neutrophils Percent Auto 83.9 % (50-75); Platelet Count 186 X10^3/uL (150-400); Red Blood Cell Count 5.07 X10^6/uL (4.5-5.9); Red Cell Distribution Width 12.4 % (11.6-14.8); White Blood Cell Count 19.1 X10^3/uL (4.5-11.0)
[2022-10-20] MEDS: LACTATED RINGERS 1,000 ML 1000 ML IV ×2 (08:39→09:41)
[2022-10-20] MEDS: KETOROLAC 30 MG/ML VIAL 15 MG IV (08:42)
[2022-10-20 08:54] LABS: Lactate (Lactic Acid) 1.2 mmol/L (0.7-2.1)
[2022-10-20 08:56] LABS: Alanine Aminotransferase 25 IU/L (<50); Albumin 4.2 g/dL (3.5-5.0); Albumin Globulin Ratio 1.2 (1.0-2.8); Alkaline Phosphatase 76 U/L (38-126); Aspartate Aminotransferase 22 IU/L (17-59); BUN Creatinine Ratio 13.6 (6-22); Bilirubin Total 1.9 mg/dL (0.2-1.3); Blood Urea Nitrogen 9 mg/dL (9-20); Calcium 8.8 mg/dL (8.4-10.2); Carbon Dioxide 24 mmol/L (22-32); Chloride 96 mmol/L (98-107); Estimated Glomerular Filt Rate > 60 mL/min (>60); Globulin 3.4 g/dL (1.7-4.1); Glucose 209 mg/dL (70-100); HEMOLYSIS < 15 (0-50); Magnesium 1.7 mg/dL (1.6-2.3); Potassium 3.4 mmol/L (3.4-5.1); Sodium 130 mmol/L (137-145); Total Protein 7.6 g/dL (6.3-8.2)
[2022-10-20 09:11] LABS: Adenovirus Not Detected (Not Detect); B. parapertussis Not Detected (Not Detecte); Bordetella pertussis Not Detected (Not Detecte); Chlamydophila pneumoniae Not Detected (Not Detect); Coronavirus 229E Not Detected (Not Detect); Coronavirus HKU1 Not Detected (Not Detect); Coronavirus NL 63 Not Detected (Not Detect); Coronavirus OC43 Not Detected (Not Detect); Human Metapneumovirus Not Detected (Not Detect); Human Rhinovirus/Enterovirus Not Detected (Not Detect); Influenza A Not Detected (Not Detect); Influenza B Not Detected (Not Detect); Mycoplasma pneumoniae Not Detected (Not Detect); Parainfluenza Virus 1 Not Detected (Not Detect); Parainfluenza Virus 2 Not Detected (Not Detect); Parainfluenza Virus 3 Not Detected (Not Detect); Parainfluenza Virus 4 Not Detected (Not Detect); Respiratory Syncytial Virus Not Detected (Not Detect); SARS- CoV-2 Not Detected (Not Detecte)
[2022-10-20 09:20] LABS: Strep Grp A by PCR Rapid Positive (Negative)
[2022-10-20] MEDS: PENICILLIN G BENZATHINE 1,200,000 UNIT/2 ML SYRINGE 1200000 UNIT IM (09:41)
== END 2022-10-20 10:46 | disposition home or self-care (01) ==
PROVIDERS: Emergency Provider Emergency Medicine; PCP Nurse Practitioner Family
DX: J02.0 Streptococcal pharyngitis (principal); H92.02 Otalgia, left ear; Z20.822 Contact with and (suspected) exposure to COVID-19
CPT/HCPCS: 36415; 80053; 82805; 83605; 83735; 85025; 87040; 87070; 87077; 87147; 87633; 87651; 96361; 96372; 96374; 99284; J0561; J1885

== ENCOUNTER 2025-04-24 09:04 | Emergency (ER) | payer OTHER, SELFPAY ==
[2018-06-07 11:13] VITALS: BMI 29.1
[2025-04-24 09:11] VITALS: BP 124/81; PULSE 98; RESP 14; TEMP 36.1; O2SAT 98; BMI 30.4
--- NOTE | 2025-04-24 10:23 | ED_ITS ---
HPI - Back Pain/Injury General Chief Complaint: Back Pain/Injury Stated Complaint: Right back shoulder pain going down back Time Seen by Provider: 04/24/25 09:09 Source: patient History of Present Illness HPI Narrative: Patient here for reproducible right-sided chest pain that started at 3:00 a.m. today. Patient went to bed last night with any chest discomfort. Awoke at 3:00 a.m. with this discomfort. It is mid right chest radiating from the spine to the sternum. Increased pain with twisting his chest rotating as well as deep breath and movement. No recent illness no injury. No history of heart attack strokes pneumothorax pleurisy. Patient does not smoke. No rash. Patient denies denies any abdominal pain. Abdomen is soft nontender no right upper quadrant tenderness. Negative Holland sign. Patient states pain was worse when he had a bowel movement and was reaching for the toilet paper with his right hand around to his back side. Related Data Home Medications ?Medication ?Instructions ?Recorded ?Confirmed atorvastatin 10 mg tablet 10 mg PO DAILY 10/13/1812/25 cholecalciferol (vitamin D3) 25 1,000 unit PO DAILY 01/07/20 mcg (1,000 unit) capsule lisinopril PO 04/10/19 01/07/20 Previous Rx's ?Medication ?Instructions ?Recorded diabetes monitor #1 ea 06/09/18 diabetes strips #1 ea 06/09/18 oxycodone-acetaminophen 5 mg-325 1 tab PO Q4-6H PRN pa inful 10/19/18 mg tablet (Percocet) procedure #20 tabs metformin 500 mg tablet 500 mg PO BID #60 tabs 01/06 ketorolac 10 mg tablet 10 mg PO Q6H PRN pain #14 ta bs 10/20/22 ketorolac 10 mg tablet 10 mg PO Q6H PRN pain #14 ta bs 10/20/22 ondansetron 4 mg disintegrating 4 mg PO TID-QID PRN na usea and 10/20/22 tablet vomiting #10 tabs ondansetron 4 mg disintegrating 4 mg PO TID-QID PRN na usea and 10/20/22 tablet vomiting #10 tabs baclofen 20 mg tablet 20 mg PO TID PRN pain (scale score 04/24/25 4-6) #20 tabs Allergies Allergy/AdvReac Type Severity Reaction Status Date / Time No Known Drug Allergies Allergy Verified 04/24/25 09:12 Review of Systems Review of Systems Narrative: GENERAL: Negative chills, fatigue, malaise, fever, sweats. HEENT: Negative sinus pain, ear pain, sore throat RESPIRATORY: Negative dyspnea, cough CARDIOVASCULAR: Negative chest pain, palpitations GASTROINTESTINAL: Negative vomiting, nausea, abdominal pain : Negative dysuria, frequency, hematuria MUSCULOSKELETAL: Positive muscle or bony pain SKIN: Negative rash, skin lesions NEUROLOGIC: Negative weakness, numbness ROS Unobtainable: All systems reviewed & are unremarkable except as noted in HPI and below Patient History Medical History Diabetes [id number] Healthy adult Surgical History History of rectal surgery (~05/2018) Family History Mother Atrial fibrillation Diabetes mellitus Father Stroke Sister Cancer Social History household members: family Smoking Status: Current every day smoker alcohol intake: current substance use type: does not use Smoking Status: Current every day smoker tobacco type: vaping alcohol intake frequency: a few times a week Exam Narrative Exam Narrative: GENERAL: in no distress, not toxic not dyspneic HEAD: Normocephalic. EYES: Pupils equal round ENT: Mucous membranes moist. NECK: Trachea midline. CARDIOVASCULAR: Regular rate and rhythm RESPIRATORY: Clear to auscultation. Breath sounds equal bilaterally. No wheezes, rales, or rhonchi. Right-sided chest and right upper back nontender on palpation but does have pain with deep breath and twisting his chest to the right and left. No rash no shingles GASTROINTESTINAL: Abdomen soft, non-tender abdomen is soft nontender no right upper quadrant tenderness. Negative Holland sign. No CVA tenderness BACK: No flank tenderness. EXTREMITIES: No gross deformities. NEURO: AOx4. Clear speech SKIN: Warm and dry PSYCH: Not anxious, is cooperative Initial Vital Signs Initial Vital Signs: Vital Signs Temperature 97.0 F L 04/24/25 09:11 Pulse Rate 98 H 04/24/25 09:11 Respiratory Rate 14 04/24/25 09:11 Blood Pressure 124/81 04/24/25 09:11 Pulse Oximetry 98 04/24/25 09:11 Oxygen Delivery Method Room Air 04/24/25 09:11 Course Orders Ordered: Discontinued Medications Ketorolac Tromethamine (Ketorolac 30 Mg/Ml Vial) 15 mg IV NOW ONE Stop: 04/24/25 10:22 Last Admin: 04/24/25 10:56 Dose: 15 mg Documented By: Marlene Vital Signs Vital signs: Vital Signs - 8 hr 04/24/25 09:11 04/24/25 10:46 04/24/25 10:46 Temperature 97.0 F L Pulse Rate 98 H 95 H Respiratory Rate 14 16 Blood Pressure 124/81 115/70 Pulse Oximetry 98 97 Oxygen Delivery Method Room Air MDM - Back Pain/Injury Lab Data 04/24/25 10:50 04/24/25 10:50 Labs: Lab Results 04/24/25 Range/Units 10:50 WBC 9.0 (4.5-11.0) X10^3/uL RBC 5.35 (4.5-5.9) X10^6/uL Hgb 16.5 (13.5-17.5) g/dL Hct 47.2 (41-53) % MCV 88.2 (80-100) fL MCH 30.8 (26-34) PG MCHC 34.9 (30-36) % RDW 12.8 (11.6-14.8) % Plt Count 180 (150-400) X10^3/uL Neut % (Auto) 63.4 (50-75) % Lymph % (Auto) 26.6 (25-40) % [place] % (Auto) 6.7 (3-14) % Eos % (Auto) 2.7 (2-4) % Baso % (Auto) 0.6 (0-2) % Neut # (Auto) 5700 (9610-7370) /uL Lymph # (Auto) 2400 (5203-0824) /uL [place] # (Auto) 600 (0-900) /uL Eos # (Auto) 200 (0-450) /uL Baso # (Auto) 100 (0-100) /uL D-Dimer < 215 (<500) ng/ml Sodium 137 (137-145) mmol/L Potassium 3.8 (3.4-5.1) mmol/L Chloride 102 (98-107) mmol/L Carbon Dioxide 25 (22-32) mmol/L BUN 15 (9-20) mg/dL Creatinine 0.71 (0.66-1.25) mg/dL Estimated GFR > 60 (>60) mL/min BUN/Creatinine Ratio 21.1 (6-22) Glucose 115 H (70-99) mg/dL Calcium 9.3 (8.4-10.2) mg/dL Total Bilirubin 1.4 H (0.2-1.3) mg/dL AST 32 (17-59) IU/L ALT 30 (<50) IU/L Alkaline Phosphatase 69 (38-126) U/L Total Protein 8.1 (6.3-8.2) g/dL Albumin 4.7 (3.5-5.0) g/dL Globulin 3.4 (1.7-4.1) g/dL Albumin/Globulin Ratio 1.4 (1.0-2.8) Lipase 160 (23-300) U/L Imaging Data Chest x-ray: Radiologist's Impression: [place] [address] XRay Report Signed Patient: Braxton Garcia MR#: [id number] : 1990 Acct:[id number] Age/Sex: 34 / M Date of Service: 04/24/25 Loc: ED Accession Number: [id number] Procedure: XR chest 1V Ordering Provider: Richy Meier MD PROCEDURE: XR CHEST 1V INDICATIONS: Right-sided chest pain TECHNIQUE: One view of the chest was acquired. COMPARISON: None. FINDINGS: Surgical changes and devices: None. Lungs and pleura: Lungs are clear. No pleural effusions or pneumothorax. Mediastinum: Mediastinal contours appear normal. Heart size is normal. Bones and chest wall: No suspicious bony lesions. Overlying soft tissues appear unremarkable. IMPRESSION: No acute cardiopulmonary abnormality is seen. Dictated by: Michael Yuan M.D. on 04/24/2025 at 10:38 Approved by: Michael Yuan M.D. on 04/24/2025 at 10:39 [facility] Narrative Medical decision making narrative: Patient here for reproducible right-sided chest pain that started at 3:00 a.m. today. Patient went to bed last night with any chest discomfort. Awoke at 3:00 a.m. with this discomfort. It is mid right chest radiating from the spine to the sternum. Increased pain with twisting his chest rotating as well as deep breath and movement. No recent illness no injury. No history of heart attack strokes pneumothorax pleurisy. Patient does not smoke. No rash. Patient denies denies any abdominal pain. Abdomen is soft nontender no right upper quadrant tenderness. Negative Holland sign. Patient states pain was worse when he had a bowel movement and was reaching for the toilet paper with his right hand around to his back side. MDM After history and exam, CBC CMP lipase chest x-ray D-dimer Toradol Differential considered: Includes but not limited to pneumothorax pleurisy costochondritis shingles pulmonary embolism cholecystitis, no EKG indicated at this time. Reproducible right-sided chest discomfort. Medical records reviewed: No recent visit for this complaint Lab Test results independently reviewed as above. Pertinent findings: WBC 9.0 hemoglobin 16.5 D-dimer less than 215 sodium 137 potassium 3.8 glucose 115 Imaging studies independently reviewed: Chest x-ray no acute finding Consultations: None indicated at this time Re-evaluations: 11:29 a.m.. Patient states the Toradol did help the pain. He still feels the pain in the mid right back but better than before. Mother at bedside. They do have a family doctor to follow up with. Short course of baclofen prescription provided. Diagnosis is likely pleurisy and reviewed with them. Return precautions reviewed and work note provided. They desire discharge home. Discussion: Appropriate for discharge home. Exam is reassuring. Return precautions reviewed with patient and mother. Pain is controlled. They desire discharge home. Diagnosis: Pleurisy Discharge Plan Departure Patient Disposition: Home Clinical Impression: Pleurisy Instructions: DI for Pleurisy Activity Restrictions/Additional Instructions: Please review information printed for your regarding pleurisy. No antibiotics are indicated this time. However prescription for baclofen may help with the pain. Otherwise do continue ibuprofen for discomfort. See your family doctor in a week for re-evaluation. Return if worse if any questions or concerns. Work note has been provided for you for today. Prescriptions: New baclofen 20 mg tablet 20 mg PO TID PRN (Reason: pain (scale score 4-6)) Qty: 20 0RF No Action lisinopril PO metformin 500 mg tablet 500 mg PO BID Qty: 60 0RF cholecalciferol (vitamin D3) 1,000 unit capsule 1,000 unit PO DAILY (DME) diabetes monitor Qty: 1 0RF Dose Instruction: As directed Rx Instructions: As directed (DME) diabetes strips Qty: 1 0RF Dose Instruction: As directed Rx Instructions: As directed atorvastatin 10 mg tablet 10 mg PO DAILY oxycodone-acetaminophen [Percocet] 5-325 mg tablet 1 tab PO Q4-6H PRN (Reason: painful procedure) Qty: 20 0RF ketorolac 10 mg tablet 10 mg PO Q6H PRN (Reason: pain) Qty: 14 0RF ondansetron 4 mg tablet,disintegrating 4 mg PO TID-QID PRN (Reason: nausea and vomiting) Qty: 10 0RF ketorolac 10 mg tablet 10 mg PO Q6H PRN (Reason: pain) Qty: 14 0RF ondansetron 4 mg tablet,disintegrating 4 mg PO TID-QID PRN (Reason: nausea and vomiting) Qty: 10 0RF Referrals: Dora Philip [employer] PS[employer]CH[employer] TE[employer]ER [Primary Care Provider, Nursing] Stand Alone Forms: Patient Portal/API, Work Release Note
[2025-04-24 10:46] VITALS: BP 115/70; PULSE 95; RESP 16; O2SAT 97
[2025-04-24] MEDS: KETOROLAC 30 MG/ML VIAL 15 MG IV (10:56)
[2025-04-24 11:00] VITALS: BP 111/68; PULSE 92; O2SAT 95
[2025-04-24 11:00] LABS: Add Manual Diff / Slide Review NO; Hematocrit 47.2 % (41-53); Hemoglobin 16.5 g/dL (13.5-17.5); Lymphocytes Absolute Auto 2400 /uL (1100-4500); Mean Corpuscular HGB Conc 34.9 % (30-36); Mean Corpuscular Hemoglobin 30.8 PG (26-34); Mean Corpuscular Volume 88.2 fL (80-100); Platelet Count 180 X10^3/uL (150-400)
[2025-04-24 11:10] LABS: Alanine Aminotransferase 30 IU/L (<50); Albumin 4.7 g/dL (3.5-5.0); Albumin Globulin Ratio 1.4 (1.0-2.8); Alkaline Phosphatase 69 U/L (38-126); Blood Urea Nitrogen 15 mg/dL (9-20); Calcium 9.3 mg/dL (8.4-10.2); Carbon Dioxide 25 mmol/L (22-32); Chloride 102 mmol/L (98-107); Estimated Glomerular Filt Rate > 60 mL/min (>60); Globulin 3.4 g/dL (1.7-4.1); Glucose 115 mg/dL (70-99); HEMOLYSIS 36 (0-50); Lipase 160 U/L (23-300); Potassium 3.8 mmol/L (3.4-5.1); Sodium 137 mmol/L (137-145); Total Protein 8.1 g/dL (6.3-8.2)
[2025-04-24 11:30] VITALS: BP 112/73; PULSE 93; O2SAT 94
== END 2025-04-24 11:48 | disposition home or self-care (01) ==
PROVIDERS: Emergency Provider Emergency Medicine; PCP Nurse Practitioner
DX: R09.1 Pleurisy (principal)
CPT/HCPCS: 36415; 71045; 80053; 83690; 85025; 85379; 96374; 99284; J1885